=== PATIENT | male | born 1955 | race Caucasian/White ===

== ENCOUNTER 2020-01-09 05:35 | Inpatient (IN) | payer MEDICARE ==
--- NOTE | 2020-01-09 06:00 | ERPHSYRPT ---
- History of Present Illness Historian: patient, EMS, [facility] records Exam Limitations: clinical condition Timing/Duration: today Activities at Onset: none Abdominal Pain Onset Location: suprapubic (Suprapubic catheter in place), other Pain Radiation: no radiation Severity of Pain-Max: none Severity of Pain-Current: none Associated Symptoms: denies symptoms Previous symptoms: no prior history <JOHNSON GARCIA - Last Filed: 01/09/20 06:58> <SOLOMON VALLE - Last Filed: 01/09/20 08:12> - History of Present Illness Time Seen by Provider: 01/09/20 05:45 Physician History: This is a 64-year-old white male resident of [facility] brought in by EMS service for urinary retention with decreased urine output from a suprapubic catheter that has been in place for several years. EMS staff was told that the patient has had very minimal output. Patient has no significant pain but was found to have a heart rate in the 110s range. He is afebrile. He had no nausea vomiting or diarrhea. He has no shortness of breath. The EMS staff notes that the urine within the bag has some purulent drainage in it. Patient is taking Eliquis (JOHNSON GARCIA) Allergies/Adverse Reactions: No Known Drug Allergies Allergy (Verified 01/09/20 06:33) Home Medications: Apixaban [Eliquis 2.5 mg Tablet] 2.5 mg PO BID 01/09/20 [History] Baclofen 10 mg [Lioresal 10 mg] 15 mg PO TID 01/09/20 [History] Carvedilol [Coreg] 12.5 mg PO BID 01/09/20 [History] Cyclobenzaprine HCl [Flexeril] 5 mg PO BID 01/09/20 [History] Famotidine 20 mg [Pepcid 20 MG] 20 mg PO BID 01/09/20 [History] Lactobacillus Acidophilus [Acidophilus TABLET] 1 tab PO BID 01/09/20 [History] Promethazine HCl 25 mg Amp [Phenergan 25 MG INJ] 25 mg IM Q6H PRN PRN 01/09/20 [History] Travel Risk - International Travel Have you traveled outside of the country in past 3 weeks: No - Coronavirus Screening Are you exhibiting any of the following symptoms?: No Close contact with a COVID-19 positive Pt in past 14-21 Days: No <JOHNSON GARCIA - Last Filed: 01/09/20 06:58> - Review of Systems Constitutional: No Symptoms Eyes: No Symptoms Ears, Nose, & Throat: No Symptoms Respiratory: No Symptoms Cardiac: Palpitations Abdominal/Gastrointestinal: No Symptoms Genitourinary Symptoms: No Symptoms Musculoskeletal: No Symptoms Skin: No Symptoms Neurological: No Symptoms Psychological: No Symptoms Endocrine: No Symptoms Hematologic/Lymphatic: No Symptoms Immunological/Allergic: No Symptoms All Other Systems: Reviewed and Negative <JOHNSON GARCIA - Last Filed: 01/09/20 06:58> - Past Medical History Pertinent Past Medical History: Yes Neurological History: Stroke ENT History: No Pertinent History Cardiac History: No Pertinent History Respiratory History: No Pertinent History Endocrine Medical History: No Pertinent History Musculoskeletal History: No Pertinent History GI Medical History: No Pertinent History History: No Pertinent History Psycho-Social History: No Pertinent History Male Reproductive Disorders: No Pertinent History - Past Surgical History Past Surgical History: Yes Neuro Surgical History: No Pertinent History Cardiac: No Pertinent History Respiratory: No Pertinent History Gastrointestinal: No Pertinent History Genitourinary: No Pertinent History Musculoskeletal: No Pertinent History Male Surgical History: No Pertinent History <JOHNSON GARCIA - Last Filed: 01/09/20 06:58> - Physical Exam General Appearance: no apparent distress, alert, anxiety Eye Exam: PERRL/EOMI Ears, Nose, Throat Exam: normal ENT inspection Neck Exam: normal inspection, non-tender, supple, full range of motion Respiratory Exam: normal breath sounds, lungs clear, airway intact, No chest tenderness, No respiratory distress Cardiovascular Exam: tachycardia Gastrointestinal/Abdomen Exam: soft, normal bowel sounds, distention (Suprapubic region), other (Suprapubic Catheter in place. Granulation tissue at catheter entrance site. 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 Original 16 Gambian suprapubic catheter was removed as sterilely as possible using sterile technique and Betadine solution. A new catheter was then inserted into the bladder without difficulty. Immediate return of mildly thick cloudy, almost purulent blood-tinged urine was noted. Clinically, the patient was experiencing relief. The catheter was irrigated out several times with saline solution until return was clear and thinner. (JOHNSON GARCIA) - Course Nursing assessment & vital signs reviewed: Yes <JOHNSON GARCIA - Last Filed: 01/09/20 06:58> Ordered Tests: Active Orders 24 hr Category Date Time Status Robles [Catheter-Marquand Robles] STAT Care 01/09/20 06:07 Active IV Insertion STAT Care 01/09/20 06:06 Active ABDOMEN AND PELVIS W/0 CONTRAS [CT] Stat Exams 01/09/20 06:41 Taken BLOOD CULTURE Stat Lab 01/09/20 06:40 Received CBC W DIFF Stat Lab 01/09/20 06:40 Completed CMP Stat Lab 01/09/20 06:40 Completed CULTURE,URINE Stat Lab 01/09/20 06:06 Ordered Lactic Acid Stat Lab 01/09/20 06:40 Completed PT INR [PROTIME WITH INR] Stat Lab 01/09/20 06:40 Completed UA W/RFX UR CULTURE Stat Lab 01/09/20 06:06 Completed Medication Summary Generic Name Dose Route Start Last Admin Trade Name Freq PRN Reason Stop Dose Admin Sodium Chloride 1,000 mls @ 100 mls/hr 01/09/20 08:00 01/09/20 07:54 Sodium Chloride 0.9% 1000 Ml IV 02/08/20 07:59 100 mls/hr .Q10H OFELIA Administration Discontinued Medications Generic Name Dose Route Start Last Admin Trade Name German PRN Reason Stop Dose Admin Sodium Chloride 1,000 mls @ 999 mls/hr 01/09/20 06:06 01/09/20 07:54 Sodium Chloride 0.9% 1000 Ml IV 01/09/20 07:06 Infused .Q1H1M STA Infusion Sodium Chloride Confirm 01/09/20 06:46 Sodium Chloride 0.9% 1000 Ml Administered 01/09/20 06:47 Dose 1,000 mls @ ud .ROUTE .STK-MED ONE Meropenem 1 g/ Sodium Chloride 100 mls @ 200 mls/hr 01/09/20 07:22 01/09/20 07:40 IV 01/09/20 07:51 200 mls/hr STAT ONE Administration Sodium Chloride Confirm 01/09/20 07:39 Sodium Chloride 100ml Mini-Bag Plus Administered 01/09/20 07:40 Dose 100 mls @ ud IV .STK-MED ONE Sodium Chloride Confirm 01/09/20 07:44 Sodium Chloride 0.9% 1000 Ml Administered 01/09/20 07:45 Dose 1,000 mls @ ud .ROUTE .STK-MED ONE Meropenem Confirm 01/09/20 07:39 Merrem 1 Gm Administered 01/09/20 07:40 Dose 1 g IV .STK-MED ONE Lab/Rad Data: Laboratory Result Diagrams 01/09/20 06:40 01/09/20 06:40 Laboratory Results 01/09/20 01/09/20 01/09/20 Range/Units 06:40 06:40 06:40 WBC (4.0-10.5) K/mm3 RBC (4.1-5.6) M/mm3 Hgb (12.5-18.0) gm/dl Hct (42-50) % MCV (78-100) fl MCH (26-32) pg MCHC (32-36) g/dl RDW (11.5-14.0) % Plt Count (150-450) K/mm3 MPV (7.5-11.0) fl Gran % (36.0-66.0) % Eos # (Auto) (0-0.5) Absolute Lymphs (auto) (1.0-4.6) Absolute Monos (auto) (0.0-1.3) Lymphocytes % (24.0-44.0) % Monocytes % (0.0-12.0) % Eosinophils % (0.00-5.0) % Basophils % (0.0-0.4) % Absolute Granulocytes (1.4-6.9) Basophils # (0-0.4) PT 17.5 H (8.83-12.87) SECONDS INR 1.54 (0.8-3.0) Sodium 130 L (137-145) mmol/L Potassium 3.9 (3.5-5.1) mmol/L Chloride 99 (98-107) mmol/L Carbon Dioxide 23 (22-30) mmol/L Anion Gap 11.4 (5-15) MEQ/L BUN 21 H (9-20) mg/dL Creatinine 1.18 (0.66-1.25) mg/dL Estimated GFR > 60.0 ML/MIN Glucose 158 H (74-106) mg/dL Lactic Acid 0.9 (0.4-2.0) Calcium 9.9 (8.4-10.2) mg/dL Total Bilirubin 1.30 (0.2-1.3) mg/dL AST 22 (17-59) U/L ALT 11 (0-50) U/L Alkaline Phosphatase 71 (38-126) U/L Serum Total Protein 6.8 (6.3-8.2) g/dL Albumin 3.8 (3.5-5.0) g/dL Urine Color (YELLOW) Urine Appearance (CLEAR) Urine pH (5-6) Ur Specific [place] (1.005-1.025) Urine Protein (Negative) Urine Ketones (NEGATIVE) Urine Blood (0-5) Reji/ul Urine Nitrite (NEGATIVE) Urine Bilirubin (NEGATIVE) Urine Urobilinogen (0-1) mg/dL Ur Leukocyte Esterase (NEGATIVE) Urine WBC (Auto) (0-5) /HPF Urine RBC (Auto) (0-2) /HPF U Epithel Cells (Auto) (FEW) /HPF Urine Bacteria (Auto) (NEGATIVE) /HPF Urine Culture Reflexed (NO) Urine Glucose (NEGATIVE) mg/dL 01/09/20 01/09/20 Range/Units 06:40 06:06 WBC 21.0 H (4.0-10.5) K/mm3 RBC 4.65 (4.1-5.6) M/mm3 Hgb 13.8 (12.5-18.0) gm/dl Hct 41.3 L (42-50) % MCV 88.8 (78-100) fl MCH 29.7 (26-32) pg MCHC 33.4 (32-36) g/dl RDW 14.5 H (11.5-14.0) % Plt Count 199 (150-450) K/mm3 MPV 9.5 (7.5-11.0) fl Gran % 91.0 H (36.0-66.0) % Eos # (Auto) 0 (0-0.5) Absolute Lymphs (auto) 0.33 L (1.0-4.6) Absolute Monos (auto) 1.51 H (0.0-1.3) Lymphocytes % 1.6 L (24.0-44.0) % Monocytes % 7.2 (0.0-12.0) % Eosinophils % 0.0 (0.00-5.0) % Basophils % 0.2 (0.0-0.4) % Absolute Granulocytes 19.07 H (1.4-6.9) Basophils # 0.05 (0-0.4) PT (8.83-12.87) SECONDS INR (0.8-3.0) Sodium (137-145) mmol/L Potassium (3.5-5.1) mmol/L Chloride (98-107) mmol/L Carbon Dioxide (22-30) mmol/L Anion Gap (5-15) MEQ/L BUN (9-20) mg/dL Creatinine (0.66-1.25) mg/dL Estimated GFR ML/MIN Glucose (74-106) mg/dL Lactic Acid (0.4-2.0) Calcium (8.4-10.2) mg/dL Total Bilirubin (0.2-1.3) mg/dL AST (17-59) U/L ALT (0-50) U/L Alkaline Phosphatase (38-126) U/L Serum Total Protein (6.3-8.2) g/dL Albumin (3.5-5.0) g/dL Urine Color RED (YELLOW) Urine Appearance TURBID (CLEAR) Urine pH 6.0 (5-6) Ur Specific [place] 1.013 (1.005-1.025) Urine Protein 100 (Negative) Urine Ketones NEGATIVE (NEGATIVE) Urine Blood LARGE (0-5) Reji/ul Urine Nitrite NEGATIVE (NEGATIVE) Urine Bilirubin NEGATIVE (NEGATIVE) Urine Urobilinogen NEGATIVE (0-1) mg/dL Ur Leukocyte Esterase SMALL (NEGATIVE) Urine WBC (Auto) >100 (0-5) /HPF Urine RBC (Auto) >101 (0-2) /HPF U Epithel Cells (Auto) FEW (FEW) /HPF Urine Bacteria (Auto) MANY (NEGATIVE) /HPF Urine Culture Reflexed ORDERED SEPARATELY (NO) Urine Glucose NEGATIVE (NEGATIVE) mg/dL <JOHNSON GARCIA - Last Filed: 01/09/20 06:58> - Progress Progress: improved Discussed with Dr.: Luciano Will see patient in: hospital (observation) Counseled pt/family regarding: lab results, diagnosis, rad results <SOLOMON VALLE - Last Filed: 01/09/20 08:12> - Progress Progress Note: 01/09/20 06:58 Patient is signed out to Dr. Valle at shift change. He was informed of the laboratory test and radiographic studies that are pending. He will make final disposition on this patient. (JOHNSON GARCIA) 01/09/20 08:10 I resumed care at shift change from Dr. Garcia with pending work-up. Patient work-up showed white count of 21, normal lactate. No acute renal failure. Is given a liter of fluid and his heart rate is currently in low 100s. Urinalysis consistent with UTI. CT abdomen pelvis showed findings consistent with cystitis. Started on IV Merrem. I have discussed with Dr. Weeks and patient is being admitted. Plan discussed with patient who understand and agrees with it. (SOLOMON VALLE) <JOHNSON GARCIA - Last Filed: 01/09/20 06:58> - Departure Departure Disposition: Observation Critical Care Time: No <SOLOMON VALLE - Last Filed: 01/09/20 08:12> - Departure Clinical Impression: Acute cystitis with hematuria Condition: Stable Referrals: DANAE BLOOM, [facility] [Primary Care Provider] -
[2020-01-09] MEDS ORDERED: Sodium Chloride 0.9% 1000 ML 1,000 ML IV STA (06:06)
[2020-01-09] MEDS ORDERED: Sodium Chloride 0.9% 1000 ML 1,000 ML ONE ×2 (06:46→07:44)
[2020-01-09 06:48] LABS: Absolute Neutrophil Ct (ANC) 19.07 (1.4-6.9); BASOPHIL % 0.2 % (0.0-0.4); Basophil (Absolute #) 0.05 (0-0.4); Eosinophil (Absolute #) 0 (0-0.5); Hematocrit 41.3 % (42-50); Hemoglobin 13.8 gm/dl (12.5-18.0); Lymphocyte (Absolute #) 0.33 (1.0-4.6); Lymphocytes % 1.6 % (24.0-44.0); Mean Cell Volume 88.8 fl (78-100); Mean Corpuscular Hemoglobin 29.7 pg (26-32); Mean Corpuscular Hgb Concent. 33.4 g/dl (32-36); Mean Platelet Volume 9.5 fl (7.5-11.0); Monocyte (Absolute #) 1.51 (0.0-1.3); Monocytes % 7.2 % (0.0-12.0); Platelet Count 199 K/mm3 (150-450); Red Blood Count 4.65 M/mm3 (4.1-5.6); Red Cell Distribution Width 14.5 % (11.5-14.0)
[2020-01-09 07:00] LABS: INR 1.54 (0.8-3.0); PROTIME 17.5 SECONDS (8.83-12.87)
[2020-01-09 07:05] LABS: ALBUMIN 3.8 g/dL (3.5-5.0); ALKALINE PHOSPHATASE 71 U/L (38-126); ANION GAP 11.4 MEQ/L (5-15); BLOOD UREA NITROGEN 21 mg/dL (9-20); CHLORIDE 99 mmol/L (98-107); Calcium 9.9 mg/dL (8.4-10.2); Carbon Dioxide 23 mmol/L (22-30); Creatinine 1 1.18 mg/dL (0.66-1.25); EST GLOMERULAR FILTRATION RATE > 60.0 ML/MIN; Glucose 158 mg/dL (74-106); Potassium 3.9 mmol/L (3.5-5.1); SGOT/AST 22 U/L (17-59); SGPT/ALT 11 U/L (0-50); SODIUM 130 mmol/L (137-145); Total Protein 6.8 g/dL (6.3-8.2)
[2020-01-09] MEDS ORDERED: Merrem 1 GM 1 G in Sodium Chloride 100ML MINI-BAG PLUS 100 ML IV ONE (07:22)
[2020-01-09 07:24] LABS: Appearance TURBID (CLEAR); Bacteria MANY /HPF (NEGATIVE); Bilirubin NEGATIVE (NEGATIVE); Blood LARGE Ery/ul (0-5); Glucose NEGATIVE (NEGATIVE); Ketones NEGATIVE (NEGATIVE); Leukocyte Esterase SMALL (NEGATIVE); Nitrite NEGATIVE (NEGATIVE); Protein,Urine Dip 100 (Negative); Specific Gravity 1.013 (1.005-1.025); Urobilinogen NEGATIVE mg/dL (0-1); WBC >100 /HPF (0-5)
[2020-01-09 07:26] LABS: RBC >101 /HPF (0-2)
[2020-01-09 07:27] LABS: Epithelial Cells FEW /HPF (FEW)
[2020-01-09] MEDS ORDERED: Sodium Chloride 100ML MINI-BAG PLUS 100 ML IV ONE (07:39)
[2020-01-09] MEDS ORDERED: Merrem 1 GM IV ONE (07:39)
[2020-01-09] MEDS ORDERED: Sodium Chloride 0.9% 1000 ML 1,000 ML IV SCH (08:00)
[2020-01-09 09:11] LABS: Slide Review 1 YES
[2020-01-09] MEDS ORDERED: TYLENOL 325 MG PO PRN (09:58)
[2020-01-09] MEDS ORDERED: MORPHINE SULFATE 2 MG INJ IV PRN (09:58)
[2020-01-09] MEDS ORDERED: Zofran 4 MG/2 ML VIAL IV PRN (09:58)
[2020-01-09] MEDS ORDERED: Pepcid 20 MG VIAL IV SCH (10:00)
[2020-01-09] MEDS ORDERED: Phenergan 25 MG INJ IM PRN (12:36)
[2020-01-09] MEDS: ELIQUIS 2.5 MG TABLET PO SCH ×3 (13:02→21:24)
[2020-01-09] MEDS: NORVASC 5 MG PO SCH (13:02)
[2020-01-09] MEDS: Cyclobenzaprine 10 MG PO SCH ×2 (13:03→21:20)
[2020-01-09] MEDS: Acidophilus TABLET PO SCH ×2 (13:04→21:23)
[2020-01-09] MEDS: COREG 12.5 MG PO SCH ×2 (13:04→21:23)
[2020-01-09] MEDS: MERREM 500MG 500 MG in Sodium Chloride 100ML MINI-BAG PLUS 100 ML IV SCH ×2 (13:09→21:20)
[2020-01-09] MEDS: LIORESAL 10 MG PO SCH ×2 (15:49→21:24)
--- NOTE | 2020-01-09 18:30 | XRAY ---
Indication: Occluded suprapubic catheter. Hematuria and pyuria. Multiple contiguous axial images obtained through the abdomen and pelvis without contrast using renal stone protocol. Comparison: None Mild respiration artifact throughout the exam. Lung bases demonstrates mild dependent atelectasis. No infiltrate or effusion. Heart is is not enlarged. Fluid in the distal esophagus esophagus presumed from gastroesophageal reflux. Right kidney demonstrates nonoccluding calculi, largest 11 mm. Suprapubic catheter in situ. Urinary bladder demonstrates moderate circumferential wall thickening with minimal stranding suggesting cystitis.. No free fluid/air. Stomach is mildly fluid distended. Noncontrasted stomach and bowel loops appear nonobstructed. Rectum demonstrates perirectal fatty infiltration, possible proctitis. Remaining liver, gallbladder, pancreas, spleen, adrenal glands, kidneys, ureters, and bladder appear unremarkable for noncontrast exam. Moderate aortoiliac calcifications without AAA. Osseous structures intact with mild osteopenia and mild degenerative changes throughout the thoracolumbar spine. Impression: 1. Nonobstructing right renal calculi. 2. Urinary bladder wall thickening with minimal stranding. Rule out cystitis. Suprapubic catheter in situ. 3. Perirectal stranding. Rule out proctitis. 4. Fluid distended distal esophagus. Rule out gastroesophageal reflux. Comment: Preliminary interpretation was made by C. No critical discrepancy.
[2020-01-09] MEDS: Sodium Chloride 0.9% 1000 ML 1,000 ML IV SCH (18:31)
[2020-01-09] MEDS: Pepcid 20 MG PO SCH (21:23)
[2020-01-09] MEDS ORDERED: NON-FORMULARY ITEM (Cyclobenzaprine Hcl [Flexeril] 5 MG) PO SCH (22:00)
[2020-01-10] MEDS: Sodium Chloride 0.9% 1000 ML 1,000 ML IV SCH ×3 (04:35→20:44)
[2020-01-10] MEDS: MERREM 500MG 500 MG in Sodium Chloride 100ML MINI-BAG PLUS 100 ML IV SCH ×3 (05:33→22:03)
[2020-01-10 06:05] LABS: Absolute Neutrophil Ct (ANC) 10.97 (1.4-6.9); BASOPHIL % 0.3 % (0.0-0.4); Basophil (Absolute #) 0.04 (0-0.4); Eosinophil % 3.6 % (0.00-5.0); Hematocrit 36.9 % (42-50); Hemoglobin 11.3 gm/dl (12.5-18.0); Lymphocyte (Absolute #) 1.37 (1.0-4.6); Lymphocytes % 9.8 % (24.0-44.0); Mean Cell Volume 98.4 fl (78-100); Mean Corpuscular Hemoglobin 30.1 pg (26-32); Mean Corpuscular Hgb Concent. 30.6 g/dl (32-36); Monocyte (Absolute #) 1.05 (0.0-1.3); Monocytes % 7.5 % (0.0-12.0); Neutrophil % 78.8 % (36.0-66.0); Platelet Count 143 K/mm3 (150-450); Red Blood Count 3.75 M/mm3 (4.1-5.6); Red Cell Distribution Width 15.1 % (11.5-14.0); White Blood Count 13.9 K/mm3 (4.0-10.5)
[2020-01-10 06:30] LABS: ALBUMIN 2.6 g/dL (3.5-5.0); ALKALINE PHOSPHATASE 50 U/L (38-126); BLOOD UREA NITROGEN 23 mg/dL (9-20); CHLORIDE 105 mmol/L (98-107); Calcium 8.6 mg/dL (8.4-10.2); Carbon Dioxide 19 mmol/L (22-30); Creatinine 1 1.03 mg/dL (0.66-1.25); EST GLOMERULAR FILTRATION RATE > 60.0 ML/MIN; Glucose 91 mg/dL (74-106); Potassium 3.3 mmol/L (3.5-5.1); SGOT/AST 18 U/L (17-59); SGPT/ALT 8 U/L (0-50); SODIUM 131 mmol/L (137-145); Total Protein 5.4 g/dL (6.3-8.2)
[2020-01-10] MEDS: ELIQUIS 2.5 MG TABLET PO SCH ×2 (10:42→21:51)
[2020-01-10] MEDS: LIORESAL 10 MG PO SCH ×3 (10:42→21:52)
[2020-01-10] MEDS: Acidophilus TABLET PO SCH ×2 (10:42→21:52)
[2020-01-10] MEDS: COREG 12.5 MG PO SCH ×2 (10:42→21:52)
[2020-01-10] MEDS: NORVASC 5 MG PO SCH (10:42)
[2020-01-10] MEDS: Cyclobenzaprine 10 MG PO SCH ×2 (10:42→21:52)
[2020-01-10] MEDS: Pepcid 20 MG PO SCH ×2 (10:42→21:51)
[2020-01-11] MEDS: Sodium Chloride 0.9% 1000 ML 1,000 ML IV SCH ×4 (03:13→17:14)
[2020-01-11] MEDS: MERREM 500MG 500 MG in Sodium Chloride 100ML MINI-BAG PLUS 100 ML IV SCH ×3 (05:28→21:53)
[2020-01-11 05:55] LABS: BASOPHIL % 0.3 % (0.0-0.4); Basophil (Absolute #) 0.03 (0-0.4); Eosinophil % 5.2 % (0.00-5.0); Eosinophil (Absolute #) 0.56 (0-0.5); Hematocrit 35.8 % (42-50); Hemoglobin 11.6 gm/dl (12.5-18.0); Lymphocyte (Absolute #) 1.07 (1.0-4.6); Lymphocytes % 9.9 % (24.0-44.0); Mean Cell Volume 91.3 fl (78-100); Mean Corpuscular Hemoglobin 29.6 pg (26-32); Mean Corpuscular Hgb Concent. 32.4 g/dl (32-36); Mean Platelet Volume 10.1 fl (7.5-11.0); Monocytes % 6.5 % (0.0-12.0); Neutrophil % 78.1 % (36.0-66.0); Platelet Count 178 K/mm3 (150-450); Red Blood Count 3.92 M/mm3 (4.1-5.6); Red Cell Distribution Width 14.7 % (11.5-14.0); White Blood Count 10.8 K/mm3 (4.0-10.5)
[2020-01-11 06:12] LABS: ALBUMIN 2.6 g/dL (3.5-5.0); ALKALINE PHOSPHATASE 51 U/L (38-126); ANION GAP 6.6 MEQ/L (5-15); BLOOD UREA NITROGEN 17 mg/dL (9-20); CHLORIDE 106 mmol/L (98-107); Carbon Dioxide 23 mmol/L (22-30); Creatinine 1 0.73 mg/dL (0.66-1.25); EST GLOMERULAR FILTRATION RATE > 60.0 ML/MIN; Glucose 85 mg/dL (74-106); Potassium 3.3 mmol/L (3.5-5.1); SGOT/AST 14 U/L (17-59); SGPT/ALT 8 U/L (0-50); SODIUM 132 mmol/L (137-145); Total Protein 5.3 g/dL (6.3-8.2)
[2020-01-11] MEDS: COREG 12.5 MG PO SCH ×2 (09:13→21:54)
[2020-01-11] MEDS: Cyclobenzaprine 10 MG PO SCH ×2 (09:13→21:54)
[2020-01-11] MEDS: LIORESAL 10 MG PO SCH ×3 (09:14→21:54)
[2020-01-11] MEDS: ELIQUIS 2.5 MG TABLET PO SCH ×2 (09:14→21:54)
[2020-01-11] MEDS: NORVASC 5 MG PO SCH (09:15)
[2020-01-11] MEDS: Acidophilus TABLET PO SCH ×2 (09:15→21:55)
[2020-01-11] MEDS: Pepcid 20 MG PO SCH ×2 (09:15→21:54)
--- NOTE | 2020-01-11 10:16 | HP ---
CHIEF COMPLAINT: Decreased urine output, infected suprapubic catheter. HISTORY OF PRESENT ILLNESS: The patient is a 64 year old white male patient resident of [facility] who was [facility] into the [facility] due to what appeared to be urinary retention. They thought that the suprapubic was clogged or at least infected. He was brought into the emergency room and found to be somewhat mildly tachycardic. He did run a bit of a fever overnight. The urine was significantly abnormal with greater than 100 white blood cells and greater than 100 red blood cells per high power field. 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 The patient is currently receiving therapy to improve his ambulation. The patient had a suprapubic catheter placed apparently for many months if not years. Dr. George sees him for this and apparently has 16 Qatari suprapubic catheter placed and replaced in the emergency room here without difficulty. HOME MEDICATIONS: Includes Eliquis 2.5 mg b.i.d., baclofen 10 mg tablets 1 tablets t.i.d., carvedilol 12.5 b.i.d., Flexeril 5 mg b.i.d., famotidine 20 mg b.i.d., lactobacillus 1 tablet b.i.d., Phenergan PRN for nausea. ALLERGIES: NKDA. PHYSICAL EXAMINATION: The patient's vital signs on admission showed temperature 98.5F, pulse 116, respiratory rate 18 and blood pressure 151/112. O2 saturation 96%. HEENT: Normocephalic, atraumatic. Pupils equal round reactive to light. Extraocular movements intact. Oropharynx is somewhat dry. NECK: Supple without lymphadenopathy, thyromegaly or JVD. CHEST: Clear to auscultation. HEART: Regular rate and rhythm. ABDOMEN: Soft. Suprapubic catheter noted to be in place. EXTREMITIES: Without cyanosis, clubbing or edema. There are flexion contractures noted in right upper extremity. NEUROLOGIC: The patient has no focal deficits noted otherwise, somewhat slurred speech but alert and oriented x3. LAB DATA AND TESTS: The patient's laboratory studies revealed a white count of 21,000. His hemoglobin 13.8, PLT 199,000. Lactic acid 0.9. His INR is 1.54. Glucose 158, BUN 21, creatinine 1.18. Sodium slightly low at 130. Electrolytes and liver enzymes were normal. The patient was initially treated with Merrem in the emergency room and by the next morning he was actually improving nicely. He did run a little bit of a fever overnight with his temperature rising to 100.8F but is now afebrile. ASSESSMENT: A patient with recent cystitis, possible pyelonephritis. Suprapubic catheter has already been changed. He is receiving IV fluids and IV Merrem. We will continue his usual home medications otherwise. I anticipate the patient will hopefully be able to be discharged back to nursing care facility within a couple of days.
[2020-01-12] MEDS: Sodium Chloride 0.9% 1000 ML 1,000 ML IV SCH (01:16)
[2020-01-12] MEDS: MERREM 500MG 500 MG in Sodium Chloride 100ML MINI-BAG PLUS 100 ML IV SCH (05:17)
[2020-01-12 05:27] LABS: Absolute Neutrophil Ct (ANC) 6.32 (1.4-6.9); BASOPHIL % 0.5 % (0.0-0.4); Basophil (Absolute #) 0.04 (0-0.4); Eosinophil % 6.1 % (0.00-5.0); Eosinophil (Absolute #) 0.54 (0-0.5); Hemoglobin 11.5 gm/dl (12.5-18.0); Lymphocyte (Absolute #) 1.33 (1.0-4.6); Mean Cell Volume 90.4 fl (78-100); Mean Corpuscular Hemoglobin 29.7 pg (26-32); Mean Corpuscular Hgb Concent. 32.9 g/dl (32-36); Monocyte (Absolute #) 0.61 (0.0-1.3); Monocytes % 6.9 % (0.0-12.0); Neutrophil % 71.5 % (36.0-66.0); Platelet Count 186 K/mm3 (150-450); Red Blood Count 3.87 M/mm3 (4.1-5.6); Red Cell Distribution Width 14.2 % (11.5-14.0); White Blood Count 8.8 K/mm3 (4.0-10.5)
[2020-01-12 05:42] LABS: ANION GAP 7.3 MEQ/L (5-15); BLOOD UREA NITROGEN 10 mg/dL (9-20); CHLORIDE 102 mmol/L (98-107); Calcium 8.1 mg/dL (8.4-10.2); Carbon Dioxide 25 mmol/L (22-30); EST GLOMERULAR FILTRATION RATE > 60.0 ML/MIN; Glucose 91 mg/dL (74-106); Potassium 3.2 mmol/L (3.5-5.1); SODIUM 131 mmol/L (137-145)
[2020-01-12 07:57] VITALS: BP 171/86; PULSE 82; O2SAT 95
[2020-01-12] MEDS: LIORESAL 10 MG PO SCH (10:25)
[2020-01-12] MEDS: Acidophilus TABLET PO SCH (10:26)
[2020-01-12] MEDS: Cyclobenzaprine 10 MG PO SCH (10:26)
[2020-01-12] MEDS: ELIQUIS 2.5 MG TABLET PO SCH (10:27)
[2020-01-12] MEDS: COREG 12.5 MG PO SCH (10:28)
[2020-01-12] MEDS: NORVASC 5 MG PO SCH (10:29)
[2020-01-12] MEDS: Pepcid 20 MG PO SCH (10:32)
--- NOTE | 2020-01-12 10:58 | DS ---
DISCHARGE DIAGNOSES: 1) INFECTED SUPRAPUBIC CATHETER. 2) URINARY TRACT INFECTION. 3) WEAKNESS. HOSPITAL COURSE: The patient is a 64 year old white male, hemiplegic, who has a suprapubic catheter in place. Apparently the catheter got quite infected and clogged up. He was brought to the emergency room where the catheter was changed. A urine culture was obtained and grew back multiple organisms with Staphylococcus Aureus, Enterococcus Faecalis, Morganella Morganii. The patient's treatment included IV Merrem which worked quite nicely after the catheter change and the antibiotics. His white count dropped from 21,000 to normal. Over the ensuing couple of days the urine cleared up nicely. The patient's metabolic panel on 01/12/2020 showed a sugar 91, BUN 10, creatinine 0.6, sodium slightly low at 131, potassium 3.2. His white count was 8,800, hemoglobin 11.5, PLT count 186,000. The sensitivities were sensitive to Levaquin for Staphylococcus Aureus and Morganella. However, the Enterococcus was only sensitive to IV medications. The patient is currently a resident of a local nursing care facility which can do IV antibiotics and skilled care so we will send him back on the current dose of Merrem for an additional four day for a total of seven days IV. [facility] He is cared for by the facility care doctor to my knowledge and he sees Dr. George for routine care. His home medications will return back to Eliquis 2.5 mg b.i.d., Baclofen 15 mg t.i.d., carvedilol 12.5 mg b.i.d., Flexeril 5 mg b.i.d., famotidine 20 mg b.i.d. and lactobacillus tablets in addition to the Merrem listed above.
== END 2020-01-12 11:08 | DRG 699 ==
LOC: ED 05:35 → MED SURG 09:22 → OBSVTOIN 16:00
PROVIDERS: ADMIT Family Medicine; ATTEND Family Medicine
DX: T83.518A Infection and inflammatory reaction due to other urinary catheter, initial encounter (principal); N39.0 Urinary tract infection, site not specified; G81.90 Hemiplegia, unspecified affecting unspecified side; R53.1 Weakness; Z79.01 Long term (current) use of anticoagulants; Z79.899 Other long term (current) drug therapy; Z86.73 Personal history of transient ischemic attack (TIA), and cerebral infarction without residual deficits
CPT/HCPCS: 36000; 36415; 51702; 74176; 80048; 80053; 81001; 83605; 85025; 85610; 87040; 87077; 87086; 87186; 93268; 96360; 96365; 99285; A9270-GY

== ENCOUNTER 2020-03-01 06:58 | Emergency (ER) | payer MEDICARE ==
--- NOTE | 2020-03-01 07:14 | ERPHSYRPT ---
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 Patient had a suprapubic catheter. He is unsure how long he has had it but it has been more than 3 weeks. Patient is frequently visited by home health. Patient states he is scheduled to have his catheter replaced today. Patient states he felt a fullness in the suprapubic region. Patient became concerned for urinary obstruction and had his sister called 911. Patient is otherwise asymptomatic. No fever. No nausea vomiting. No diarrhea. No abdominal pain. No testicular pain. No trauma. Patient states he feels otherwise and is requesting to be discharged soon as possible. Patient voices no other complaints or concerns at this time. Timing/Duration: today Severity: moderate Modifying Factors: Improves With: nothing Associated Symptoms: denies symptoms, No nausea, No vomiting, No abdominal pain, No shortness of breath, No heartburn, No diaphoresis, No cough, No chills, No chest pain, No fever, No headaches, No loss of appetite, No malaise, No syncope, No seizure, No weakness Allergies/Adverse Reactions: No Known Drug Allergies Allergy (Verified 03/01/20 07:29) Home Medications: Amlodipine Besylate 5 mg [Norvasc 5 mg] 5 mg PO DAILY 01/09/20 [History] Apixaban [Eliquis 2.5 mg Tablet] 5 mg PO BID 01/09/20 [History] Baclofen 10 mg [Lioresal 10 mg] 15 mg PO TID 01/09/20 [History] Carvedilol [Coreg] 12.5 mg PO BID 01/09/20 [History] Cyclobenzaprine HCl [Flexeril] 5 mg PO BID 01/09/20 [History] Famotidine 20 mg [Pepcid 20 MG] 20 mg PO BID 01/09/20 [History] Lactobacillus Acidophilus [Acidophilus TABLET] 1 tab PO BID 01/09/20 [History] Hx Tetanus, Diphtheria Vaccination/Date Given: Yes Hx Influenza Vaccination/Date Given: No Hx Pneumococcal Vaccination/Date Given: No - Review of Systems Constitutional: No Symptoms, No Fever, No Chills Eyes: No Symptoms Ears, Nose, & Throat: No Symptoms Respiratory: No Symptoms, No Cough, No Dyspnea Cardiac: No Symptoms, No Chest Pain, No Edema, No Syncope Abdominal/Gastrointestinal: No Symptoms, No Abdominal Pain, No Nausea, No Vomiting, No Diarrhea Genitourinary Symptoms: No Symptoms, No Dysuria Musculoskeletal: No Symptoms, No Back Pain, No Neck Pain Skin: No Symptoms, No Rash Neurological: No Symptoms, No Dizziness, No Focal Weakness, No Sensory Changes Psychological: No Symptoms Endocrine: No Symptoms Hematologic/Lymphatic: No Symptoms Immunological/Allergic: No Symptoms All Other Systems: Reviewed and Negative - Past Medical History Pertinent Past Medical History: Yes Neurological History: Stroke ENT History: No Pertinent History Cardiac History: No Pertinent History Respiratory History: No Pertinent History Endocrine Medical History: No Pertinent History Musculoskeletal History: No Pertinent History GI Medical History: No Pertinent History History: No Pertinent History Psycho-Social History: No Pertinent History Male Reproductive Disorders: No Pertinent History Other Medical History: hx of bph. pt has suprapubic cath in place. 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 - Past Surgical History Past Surgical History: Yes Neuro Surgical History: No Pertinent History Cardiac: No Pertinent History Respiratory: No Pertinent History Gastrointestinal: No Pertinent History Genitourinary: No Pertinent History Musculoskeletal: No Pertinent History Male Surgical History: No Pertinent History Other Surgical History: suprapubic cath placement - Social History Smoking Status: Never smoker Exposure to second hand smoke: No Drug Use: none Patient Lives Alone: No - Nursing Vital Signs Nursing Vital Signs: Initial Vital Signs Temperature 98.2 F 03/01/20 07:09 Pulse Rate 120 H 03/01/20 07:09 Respiratory Rate 20 03/01/20 07:09 Blood Pressure 188/123 03/01/20 07:09 O2 Sat by Pulse Oximetry 96 03/01/20 07:09 Pain Scale Pain Intensity 10 - Physical Exam General Appearance: no apparent distress, alert Eye Exam: PERRL/EOMI, eyes nml inspection Ears, Nose, Throat Exam: normal ENT inspection, TMs normal, pharynx normal, moist mucous membranes Neck Exam: normal inspection, non-tender, supple, full range of motion Respiratory Exam: normal breath sounds, lungs clear, No respiratory distress Cardiovascular Exam: regular rate/rhythm, normal heart sounds, normal peripheral pulses Gastrointestinal/Abdomen Exam: soft, normal bowel sounds, No tenderness, No mass Rectal Exam: deferred Back Exam: normal inspection, normal range of motion, No CVA tenderness, No vertebral tenderness Extremity Exam: normal inspection, normal range of motion, pelvis stable Neurologic Exam: alert, oriented x 3, cooperative, normal mood/affect, nml cerebellar function, nml station & gait, sensation nml, No motor deficits Skin Exam: normal color, warm, dry, No rash Lymphatic Exam: No adenopathy SpO2 Interpretation: normal SpO2: 98 O2 Delivery: Room Air - Course Nursing assessment & vital signs reviewed: Yes Ordered Tests: Active Orders 24 hr Category Date Time Status CULTURE,URINE Stat Lab 03/01/20 07:31 Received UA W/RFX UR CULTURE Stat Lab 03/01/20 07:31 Completed Medication Summary Discontinued Medications Generic Name Dose Route Start Last Admin Trade Name Freq PRN Reason Stop Dose Admin Ciprofloxacin Confirm 03/01/20 08:18 Cipro 500 Mg Administered 03/01/20 08:19 Dose 500 mg .ROUTE .STK-MED ONE Ciprofloxacin 500 mg 03/01/20 08:20 03/01/20 08:21 Cipro 500 Mg PO 03/01/20 08:21 500 mg STAT ONE Administration Lab/Rad Data: Laboratory Results 03/01/20 Range/Units 07:31 Urine Color YELLOW (YELLOW) Urine Appearance CLOUDY (CLEAR) Urine pH 8.0 (5-6) Ur Specific [place] 1.011 (1.005-1.025) Urine Protein 100 (Negative) Urine Ketones NEGATIVE (NEGATIVE) Urine Blood LARGE (0-5) Reji/ul Urine Nitrite NEGATIVE (NEGATIVE) Urine Bilirubin NEGATIVE (NEGATIVE) Urine Urobilinogen NEGATIVE (0-1) mg/dL Ur Leukocyte Esterase LARGE (NEGATIVE) Urine WBC (Auto) >100 (0-5) /HPF Urine RBC (Auto) >101 (0-2) /HPF U Epithel Cells (Auto) NONE (FEW) /HPF Urine Bacteria (Auto) FEW (NEGATIVE) /HPF Urine Mucus (Auto) MANY (NEGATIVE) /HPF Urine Culture Reflexed YES (NO) Urine Glucose NEGATIVE (NEGATIVE) mg/dL - Progress Progress: improved Progress Note: 03/01/20 08:23 Patient reassessed. He feels well. Nurse flushed Robles catheter and sediment drained out along with urine. UA reveals urinary tract infection. Patient received a dose of oral Cipro Floxin in our ED. A prescription for the same was transmitted to the patient's pharmacy. Patient is currently asymptomatic. He feels well. Patient states is ready for discharge. No indication for further work-up at this time. Will discharge home. Counseled pt/family regarding: lab results, diagnosis, need for follow-up - Departure Departure Disposition: Home Clinical Impression: UTI (urinary tract infection), Urinary retention Condition: Stable Critical Care Time: No Referrals: DANAE BLOOM, COMMUNITY DEVELOPMENT WORKER [Primary Care Provider] - Additional Instructions: Discharge/Care Plan BLAIR FLOOD JR was seen on 03/01/20 in the Emergency Room. The patient was counseled regarding Diagnosis,Lab results, Imaging studies, need for follow up and when to return to the Emergency Room. Prescriptions given: Discharge Note I have spoken with the patient and/or caregivers. I have explained the patient's condition, diagnosis and treatment plan based on the information available to me at this time. I have answered the patient's and/or caregiver's questions and addressed any concerns. The patient and/or caregivers have as good understanding of the patient's diagnosis, condition and treatment plan as can be expected at this point. The vital signs have been stable. The patient's condition is stable and appropriate for discharge from the emergency department. The patient will pursue further outpatient evaluation with the primary care physician or other designated or consulting physician as outlined in the discharge instructions. The patient and/or caregivers are agreeable to this plan of care and follow-up instructions have been explained in detail. The patient and/or caregivers have received these instruction. The patient/and or caregivers are aware that any significant change in condition or worsening of symptoms should prompt an immediate return to this or the closest emergency department or call 911. Prescriptions: Ciprofloxacin [Cipro 500 MG] 500 mg PO BID 10 Days #20 tablet
[2020-03-01 07:44] LABS: Appearance CLOUDY (CLEAR); Bacteria FEW /HPF (NEGATIVE); Bilirubin NEGATIVE (NEGATIVE); Blood LARGE Ery/ul (0-5); Glucose NEGATIVE (NEGATIVE); Ketones NEGATIVE (NEGATIVE); Leukocyte Esterase LARGE (NEGATIVE); Nitrite NEGATIVE (NEGATIVE); Protein,Urine Dip 100 (Negative); Specific Gravity 1.011 (1.005-1.025); Urobilinogen NEGATIVE mg/dL (0-1); WBC >100 /HPF (0-5)
[2020-03-01 07:46] LABS: Mucus MANY /HPF (NEGATIVE); RBC >101 /HPF (0-2)
[2020-03-01] MEDS ORDERED: Cipro 500 MG ONE (08:18)
[2020-03-01] MEDS ORDERED: Cipro 500 MG PO ONE (08:20)
[2020-03-01 08:42] VITALS: O2SAT 96
[2020-03-01 12:44] VITALS: BP 164/90; PULSE 94
== END 2020-03-01 15:04 | disposition home or self-care (01) ==
LOC: ED 06:58
DX: N39.0 Urinary tract infection, site not specified (principal); R33.9 Retention of urine, unspecified
CPT/HCPCS: 51705; 81001; 87077; 87086; 87186; 99284; A9270-GY

== ENCOUNTER 2020-12-14 02:48 | Emergency (ER) | payer MEDICARE ==
[2020-12-14] MEDS ORDERED: Cipro 500 MG PO STA (03:06)
--- NOTE | 2020-12-14 03:07 | ERPHSYRPT ---
- History of Present Illness Time Seen by Provider: 12/14/20 02:58 Source: patient Exam Limitations: no limitations Physician History: 65 years old male brought in ER by EMS with history of stroke with right-sided weakness, indwelling suprapubic catheter presented in the ER with cloudy urine output and some suprapubic discomfort for the last few days along with some blockage in the catheter since evening. Patient reports some bloating sensation in the lower abdomen without any fever or chills. Patient brought his catheter and wants to be changed. He does it every 3 months. Allergies/Adverse Reactions: No Known Drug Allergies Allergy (Verified 03/01/20 07:29) Home Medications: Amlodipine Besylate 5 mg [Norvasc 5 mg] 5 mg PO DAILY 01/09/20 [History] Apixaban [Eliquis 2.5 mg Tablet] 5 mg PO BID 01/09/20 [History] Baclofen 10 mg [Lioresal 10 mg] 15 mg PO TID 01/09/20 [History] Carvedilol [Coreg] 12.5 mg PO BID 01/09/20 [History] Cyclobenzaprine HCl [Flexeril] 5 mg PO BID 01/09/20 [History] Famotidine 20 mg [Pepcid 20 MG] 20 mg PO BID 01/09/20 [History] Lactobacillus Acidophilus [Acidophilus TABLET] 1 tab PO BID 01/09/20 [History] Hx Tetanus, Diphtheria Vaccination/Date Given: Yes Hx Influenza Vaccination/Date Given: No Hx Pneumococcal Vaccination/Date Given: No - Past Medical History Pertinent Past Medical History: Yes Neurological History: Stroke ENT History: No Pertinent History Cardiac History: No Pertinent History Respiratory History: No Pertinent History Endocrine Medical History: No Pertinent History Musculoskeletal History: No Pertinent History GI Medical History: No Pertinent History History: No Pertinent History Psycho-Social History: No Pertinent History Male Reproductive Disorders: No Pertinent History Other Medical History: hx of bph. pt has suprapubic cath in place. 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 - Past Surgical History Past Surgical History: Yes Neuro Surgical History: No Pertinent History Cardiac: No Pertinent History Respiratory: No Pertinent History Gastrointestinal: No Pertinent History Genitourinary: No Pertinent History Musculoskeletal: No Pertinent History Male Surgical History: No Pertinent History Other Surgical History: suprapubic cath placement - Social History Smoking Status: Never smoker Exposure to second hand smoke: No Drug Use: none Patient Lives Alone: No - Review of Systems Constitutional: No Symptoms Respiratory: No Symptoms Cardiac: No Symptoms Abdominal/Gastrointestinal: No Symptoms Genitourinary Symptoms: Urinary Retention Musculoskeletal: Deformity Skin: No Symptoms Neurological: Paralysis Endocrine: No Symptoms Hematologic/Lymphatic: No Symptoms Immunological/Allergic: No Symptoms - Nursing Vital Signs Nursing Vital Signs: Initial Vital Signs Temperature 98.0 F 12/14/20 03:04 Pulse Rate 117 H 12/14/20 03:04 Respiratory Rate 20 12/14/20 03:04 Blood Pressure 198/125 12/14/20 03:04 O2 Sat by Pulse Oximetry 96 12/14/20 03:04 Pain Scale Pain Intensity 0 - Physical Exam General Appearance: no apparent distress, alert Eye Exam: PERRL/EOMI Ears, Nose, Throat Exam: normal ENT inspection Neck Exam: normal inspection, supple, full range of motion Respiratory Exam: normal breath sounds, lungs clear Cardiovascular Exam: regular rate/rhythm, normal heart sounds Gastrointestinal/Abdomen Exam: soft, normal bowel sounds, tenderness (Minimal suprapubic tenderness) Back Exam: normal inspection Extremity Exam: other (Right upper extremity contractures), No normal range of motion Neurologic Exam: alert, oriented x 3, cooperative Skin Exam: normal color SpO2 Interpretation: normal SpO2: 96 O2 Delivery: Room Air Ordered Tests: Medication Summary Discontinued Medications Generic Name Dose Route Start Last Admin Trade Name Freq PRN Reason Stop Dose Admin Ciprofloxacin 500 mg 12/14/20 03:06 12/14/20 03:36 Cipro 500 Mg PO 12/14/20 03:07 500 mg ONCE STA Administration Ciprofloxacin Confirm 12/14/20 03:35 Cipro 500 Mg Administered 12/14/20 03:36 Dose 500 mg .ROUTE .SaySwap-MED ONE Lab/Rad Data: Laboratory Results 12/14/20 Range/Units 03:39 Urine Color YELLOW (YELLOW) Urine Appearance CLOUDY (CLEAR) Urine pH 6.0 (5-6) Ur Specific [place] 1.010 (1.005-1.025) Urine Protein 100 (Negative) Urine Ketones NEGATIVE (NEGATIVE) Urine Blood MODERATE (0-5) Reji/ul Urine Nitrite NEGATIVE (NEGATIVE) Urine Bilirubin NEGATIVE (NEGATIVE) Urine Urobilinogen NEGATIVE (0-1) mg/dL Ur Leukocyte Esterase LARGE (NEGATIVE) Urine WBC (Auto) >100 (0-5) /HPF Urine RBC (Auto) 26-50 (0-2) /HPF U Epithel Cells (Auto) NONE (FEW) /HPF Urine Bacteria (Auto) NONE (NEGATIVE) /HPF Urine Mucus (Auto) SLIGHT (NEGATIVE) /HPF Urine Culture Reflexed ORDERED SEPARATELY (NO) Urine Glucose NEGATIVE (NEGATIVE) mg/dL - Progress Progress: improved Progress Note: 12/14/20 catheter is replaced. Does have UTI and given a dose of Rocephin. We will continue with Keflex to go home. Outpatient follow-up recommended Counseled pt/family regarding: lab results, diagnosis, need for follow-up - Departure Departure Disposition: Home Clinical Impression: UTI (urinary tract infection) Qualifiers: Urinary tract infection type: acute cystitis Hematuria presence: with hematuria Qualified Code(s): N30.01 - Acute cystitis with hematuria Condition: Stable Critical Care Time: No Referrals: DANAE BLOOM DIESEL LOCOMOTIVE ENGINEER [Primary Care Provider] - Follow Up with PCP/3 days Instructions: Urinary Retention (DC) Additional Instructions: Follow-up with your primary care for reevaluation. Return to ER if again has blockage are inadequate drainage of urinary catheter are developed lower abdominal pain. Prescriptions: Ciprofloxacin [Cipro 500 MG] 500 mg PO BID #14 tablet
[2020-12-14] MEDS ORDERED: Cipro 500 MG ONE (03:35)
[2020-12-14 03:56] LABS: Appearance CLOUDY (CLEAR); Bilirubin NEGATIVE (NEGATIVE); Blood MODERATE Ery/ul (0-5); Glucose NEGATIVE (NEGATIVE); Ketones NEGATIVE (NEGATIVE); Leukocyte Esterase LARGE (NEGATIVE); Mucus SLIGHT /HPF (NEGATIVE); Nitrite NEGATIVE (NEGATIVE); Protein,Urine Dip 100 (Negative); RBC 26-50 /HPF (0-2); Urobilinogen NEGATIVE mg/dL (0-1); WBC >100 /HPF (0-5)
[2020-12-14 06:16] VITALS: O2SAT 96
[2020-12-14 07:14] VITALS: PULSE 85
[2020-12-14 08:47] VITALS: BP 165/86
== END 2020-12-14 09:25 | disposition home or self-care (01) ==
LOC: ED 02:48
DX: N30.01 Acute cystitis with hematuria (principal); Z79.899 Other long term (current) drug therapy
CPT/HCPCS: 81001; 87077; 87086; 87186; 99284; A9270-GY

== ENCOUNTER 2021-09-18 20:44 | Emergency (ER) | payer MEDICARE ==
--- NOTE | 2021-09-18 21:01 | ERPHSYRPT ---
- History of Present Illness Time Seen by Provider: 09/18/21 20:45 Source: patient Exam Limitations: no limitations Physician History: This is a 66-year-old white male who has a suprapubic catheter in place. He has been in place for approximately a year. Today, the catheter slipped out of the ostomy site. Patient was brought in by the ambulance service. Patient's tube was in his diaper and it looked as though the balloon was popped and therefore the 14 [place] suprapubic catheter became dislodged. Patient has no specific complaints Timing/Duration: today Activites at Onset: none Severity of Pain-Max: none Severity of Pain-Current: none Associated Symptoms: denies symptoms Prior abdominal problems: none Sexual intercourse history: non-contributory Allergies/Adverse Reactions: No Known Drug Allergies Allergy (Verified 03/01/20 07:29) Home Medications: Amlodipine Besylate 5 mg [Norvasc 5 mg] 5 mg PO DAILY 01/09/20 [History] Apixaban [Eliquis 2.5 mg Tablet] 5 mg PO BID 01/09/20 [History] Baclofen 10 mg [Lioresal 10 mg] 15 mg PO TID 01/09/20 [History] Cyclobenzaprine HCl [Flexeril] 5 mg PO BID 01/09/20 [History] Famotidine 20 mg [Pepcid 20 MG] 20 mg PO BID 01/09/20 [History] Lactobacillus Acidophilus [Acidophilus TABLET] 1 tab PO BID 01/09/20 [History] carvediloL [Coreg] 12.5 mg PO BID 01/09/20 [History] Hx Tetanus, Diphtheria Vaccination/Date Given: Yes Hx Influenza Vaccination/Date Given: No Hx Pneumococcal Vaccination/Date Given: No Travel Risk - International Travel Have you traveled outside of the country in past 3 weeks: No - Coronavirus Screening Are you exhibiting any of the following symptoms?: No Close contact with a COVID-19 positive Pt in past 14-21 Days: No - Vaccine Status Have you recieved a Covid-19 vaccination: Yes 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 pt has suprapubic cath in place. 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 - Past Surgical History Past Surgical History: Yes Neuro Surgical History: No Pertinent History Cardiac: No Pertinent History Respiratory: No Pertinent History Gastrointestinal: No Pertinent History Genitourinary: No Pertinent History Musculoskeletal: No Pertinent History Male Surgical History: No Pertinent History Other Surgical History: suprapubic cath placement - Social History Smoking Status: Never smoker Exposure to second hand smoke: No Drug Use: none Patient Lives Alone: No - Review of Systems Constitutional: No Symptoms Eyes: No Symptoms Ears, Nose, & Throat: No Symptoms Respiratory: No Symptoms Cardiac: No Symptoms Abdominal/Gastrointestinal: No Symptoms, Other (Suprapubic catheter dislodged with ostomy site at the suprapubic region) Genitourinary Symptoms: No Symptoms Musculoskeletal: No Symptoms Skin: No Symptoms Neurological: No Symptoms Psychological: No Symptoms Endocrine: No Symptoms Hematologic/Lymphatic: No Symptoms Immunological/Allergic: No Symptoms All Other Systems: Reviewed and Negative - Physical Exam General Appearance: no apparent distress, alert, anxiety Eye Exam: PERRL/EOMI, eyes nml inspection Ears, Nose, Throat Exam: normal ENT inspection, moist mucous membranes Neck Exam: normal inspection, non-tender, supple, full range of motion Respiratory Exam: airway intact, No chest tenderness, No respiratory distress Gastrointestinal/Abdomen Exam: normal bowel sounds, other (Ostomy), No tenderness Rectal Exam: not done Back Exam: CVA tenderness Neurologic Exam: alert, oriented x 3, cooperative Skin Exam: normal color, warm, dry Lymphatic Exam: No adenopathy SpO2 Interpretation: normal O2 Delivery: Room Air Procedures - Additional Procedures Progress: Procedure time out at 2049: The suprapubic ostomy site was cleaned and dried. Small amount of lubricant was placed on the distal end of the 14 [place] suprapubic catheter. With even pressure, the catheter was placed into the urinary bladder without difficulty. The patient tolerated the procedure well. 10 mL of normal saline solution was used to inflate the balloon. There was excellent urine flow from the suprapubic catheter that was placed. There were no complications. - Progress Progress: improved Counseled pt/family regarding: diagnosis, need for follow-up - Departure Departure Disposition: Home Clinical Impression: Encounter for suprapubic catheter care Condition: Stable Critical Care Time: No Referrals: DANAE BLOOM FIBERGLASSER [Primary Care Provider] - Follow up/PCP as directed Additional Instructions: Continue suprapubic catheter care as before.
[2021-09-18 21:54] LABS: Appearance CLOUDY (CLEAR); Bilirubin SMALL (NEGATIVE); Dipstick done @ ? MAIN LAB; Glucose NEGATIVE (NEGATIVE); Ketones TRACE (NEGATIVE); Nitrite POSITIVE (NEGATIVE); Protein,Urine Dip >=300 (Negative); RBC LARGE Ery/ul (0-5); Specific Gravity 1.025 (1.005-1.025); Urobilinogen 4 mg/dL (0-1)
[2021-09-18 21:56] LABS: Bacteria RARE /HPF (NEGATIVE); WBC >100 /HPF (0-5)
[2021-09-18 21:57] LABS: RBC >101 /HPF (0-2); Urine Cultured Indicated? YES
[2021-09-18] MEDS ORDERED: KEFLEX 500 MG PO ONE (21:57)
[2021-09-18] MEDS ORDERED: KEFLEX 500 MG ONE (22:17)
[2021-09-19 00:02] VITALS: BP 133/80; PULSE 79; O2SAT 97
== END 2021-09-19 00:10 | disposition home or self-care (01) ==
LOC: ED 20:44
DX: Z43.6 Encounter for attention to other artificial openings of urinary tract (principal); Z79.01 Long term (current) use of anticoagulants; Z79.899 Other long term (current) drug therapy
CPT/HCPCS: 51705; 81015; 87077; 87086; 87186; 99283; A9270-GY

== ENCOUNTER 2022-02-18 15:27 | Emergency (ER) | payer MEDICARE ==
--- NOTE | 2022-02-18 15:42 | ERPHSYRPT ---
- History of Present Illness Time Seen by Provider: 02/18/22 15:38 Source: patient, EMS Physician History: Patient is 66-year-old male with history of chronic suprapubic catheter was at home on computer and suddenly he passed felt a pop in his suprapubic catheter almost came out so he called ambulance and patient was brought into the emergency room. Except for this patient denies any other symptoms. Timing/Duration: today Associated Symptoms: denies symptoms Allergies/Adverse Reactions: No Known Drug Allergies Allergy (Verified 09/18/21 21:13) Home Medications: Amlodipine Besylate 5 mg [Norvasc 5 mg] 5 mg PO DAILY 01/09/20 [History] Apixaban [Eliquis 2.5 mg Tablet] 5 mg PO BID 01/09/20 [History] Baclofen 10 mg [Lioresal 10 mg] 15 mg PO TID 01/09/20 [History] Cyclobenzaprine HCl [Flexeril] 5 mg PO BID 01/09/20 [History] Famotidine 20 mg [Pepcid 20 MG] 20 mg PO BID 01/09/20 [History] Lactobacillus Acidophilus [Acidophilus TABLET] 1 tab PO BID 01/09/20 [History] carvediloL [Coreg] 12.5 mg PO BID 01/09/20 [History] Hx Tetanus, Diphtheria Vaccination/Date Given: Yes Hx Influenza Vaccination/Date Given: No Hx Pneumococcal Vaccination/Date Given: No Travel Risk - Vaccine Status Have you recieved a Covid-19 vaccination: Yes 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[employer] - Vaccination Dates Date of 2cond Vaccination (if applicable): 08/16/20 - Review of Systems Constitutional: No Symptoms Eyes: No Symptoms Ears, Nose, & Throat: No Symptoms Respiratory: No Symptoms Cardiac: No Symptoms Abdominal/Gastrointestinal: No Symptoms Genitourinary Symptoms: Other (suprapubic cathetor came out) - Past Medical History Pertinent Past Medical History: Yes Neurological History: Stroke ENT History: No Pertinent History Cardiac History: No Pertinent History Respiratory History: No Pertinent History Endocrine Medical History: No Pertinent History Musculoskeletal History: No Pertinent History GI Medical History: No Pertinent History History: No Pertinent History Psycho-Social History: No Pertinent History Male Reproductive Disorders: No Pertinent History Other Medical History: hx of bph. pt has suprapubic cath in place. 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 - Past Surgical History Past Surgical History: Yes Neuro Surgical History: No Pertinent History Cardiac: No Pertinent History Respiratory: No Pertinent History Gastrointestinal: No Pertinent History Genitourinary: No Pertinent History Musculoskeletal: No Pertinent History Male Surgical History: No Pertinent History Other Surgical History: suprapubic cath placement - Social History Smoking Status: Never smoker Exposure to second hand smoke: No Drug Use: none Patient Lives Alone: No - Physical Exam General Appearance: no apparent distress Eye Exam: PERRL/EOMI Ears, Nose, Throat Exam: normal ENT inspection Neck Exam: normal inspection Respiratory Exam: normal breath sounds Cardiovascular Exam: regular rate/rhythm Gastrointestinal/Abdomen Exam: soft Male Genitalia Exam: normal genitalia Back Exam: normal inspection Extremity Exam: normal inspection - Course Nursing assessment & vital signs reviewed: Yes - Progress Progress: improved Progress Note: 02/18/22 15:40 Patient suprapubic catheter was replaced with new Robles catheter without any complication. Counseled pt/family regarding: diagnosis, need for follow-up - Departure Departure Disposition: Home Clinical Impression: Encounter for suprapubic catheter care Condition: Stable Critical Care Time: No Referrals: DANAE BLOOM, HOSPICE CARE CONSULTANT [Primary Care Provider] - Follow up/PCP as directed Instructions: How to Care for Your Suprapubic Urinary Catheter Additional Instructions: REMIGIO MARSHALLBLAIR LOPEZ was seen on 02/18/22 n the Emergency Room. At that time you were treated for an emergent condition, during your visit Laboratory, Radiology and/or other procedures may have been ordered. It is very important that you follow-up with your Primary Care Physician DANAE BLOOM within the next 24-48 hours to review your Emergency Room visit and the final results of testing that was ordered. Some test results such as Urine Cultures, Blood Cultu res, and other cultures if ordered will not be finalized for 24-48 hours. If you do not have a Primary Care Provider please call the medical records department at [phone] ext [phone] to obtain a copy of your results or you may sign into our patient portal to obtain these results by visiting us @ [email or web address] and completing the following steps: 1. Click on the Patient Portal link 2. Click the Patient Self Enrollment Link to complete the enrollment form and entering your 3. Once the enrollment form is completed you will receive an email with a temp orary ID and password at the email address you provided. 4. Next choose a user name and password. Your user name must be at least 4 characters long and your password must be at least 4 characters long. 5. Choose a security question from the list and provide your answer to the question. If you already have signed into the Health Portal you may access your Health Care Information 05/11 by the following steps: 1. Login to our website @ [email or web address] 2. Enter your original user name and password. FAQS The [facility] Health Portal is an online tool that contains your Lab Results, Radiology Reports, Visit History, Discharge Instructions and Health Summary Lab and Radiology Results will not be available for 72 hours on the portal. The Portal is a secure site, passwords are encryted and URLs are re-written so they cannot be copied and pasted. You and authorized family members are the only ones who can access your Portal. Also there is a timeout feature that protects your information if you leave the Portal page open. If you have technical difficulty please use the Contact Us link on the page this will allow you to submit any questions you have regarding the Portal or you may contact the Medical Record Department at [phone] ext [phone].
[2022-02-18 17:03] VITALS: BP 165/72; PULSE 78; O2SAT 98
== END 2022-02-18 17:03 | disposition home or self-care (01) ==
LOC: ED 15:27
DX: T83.028A Displacement of other urinary catheter, initial encounter (principal); Z79.01 Long term (current) use of anticoagulants; Z79.899 Other long term (current) drug therapy
CPT/HCPCS: 99281

== ENCOUNTER 2022-03-02 11:46 | Observation (INO) | payer MEDICARE ==
--- NOTE | 2022-03-02 12:04 | XRAY ---
Indication: Slurred speech. Stroke. Multiple contiguous axial images obtained through the head without contrast. Comparison: None Age-appropriate global atrophy, mild periventricular degenerative micro-ischemia bilaterally, and old lacunar infarcts left basal ganglia. Left mid periventricular white matter also demonstrates 1.4 x 1.0 x 2.2 cm remote infarct. No acute intracranial hemorrhage, abnormal extra-axial fluid collection, or mass effect. Fourth ventricle is midline without hydrocephalus. Bony calvarium intact. Near-complete opacification both maxillary and mild mucosal thickening both ethmoid sinuses. Mastoid air cells are clear. Impression: Nonacute senile brain with small old left cerebral infarcts. Incidental paranasal sinus disease.
--- NOTE | 2022-03-02 12:14 | XRAY ---
Indication: Lethargy. Comparison: None Portable chest clear. Heart not enlarged with moderate sized hiatal hernia. Bony thorax intact with mild osteopenia and degenerative changes. Impression: Nonacute chest with chronic features.
[2022-03-02 12:28] LABS: Absolute Neutrophil Ct (ANC) 20.61 x10^3/uL (1.4-6.9); Basophil (Absolute #) 0.07 x10^3/uL (0-0.4); Eosinophil % 0.1 % (0.00-5.0); Eosinophil (Absolute #) 0.02 x10^3/uL (0-0.5); Hematocrit 43.5 % (42-50); Hemoglobin 14.8 g/dL (12.5-18.0); Lymphocyte (Absolute #) 0.73 x10^3/uL (1.0-4.6); Lymphocytes % 3.1 % (24.0-44.0); Mean Cell Volume 88.6 fL (78-100); Mean Corpuscular Hemoglobin 30.1 pg (26-32); Mean Platelet Volume 9.5 fL (7.5-11.0); Monocyte (Absolute #) 1.68 x10^3/uL (0.0-1.3); Monocytes % 7.2 % (0.0-12.0); Neutrophil % 88.6 % (36.0-66.0); Platelet Count 211 x10^3/uL (150-450); Red Blood Count 4.91 x10^6/uL (4.1-5.6); White Blood Count 23.3 x10^3/uL (4.0-10.5)
--- NOTE | 2022-03-02 12:42 | ERPHSYRPT ---
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) Patient Subjective Stated Complaint: confusion and weakness that began sometime this morning around 1000 Triage Nursing Assessment: Pt brought to the ER by his healthcare helper, hypertensive, tachycardic, denies pain, having a hard time getting his words out, left eye more shut than the right and the pt and the healthcare worker s garcia that is not normal, pt unable to move from wheelchair to the bed without 2 people assistance, pt is unable to move his right leg which is more prominent today than normal, pt was at [facility] yesterday to have his pelaez replaced, pulses normal, skin n/w/d, hx of stroke with right sided deficit Physician History: 66 yo WM w h/o chronic R hemiparesis due to a CVA presents w confusion since approximately 6:30 AM. He has a supra-pubic catheter which was changed in the [facility] ER yesterday. Pt is alert and oriented x3 wo new focal weakness upon presentation. He denies fever/cough/chest pain/abdominal pain/N/V/D. Timing/Duration: today Severity: mild Modifying Factors: Improves With: nothing Associated Symptoms: denies symptoms Allergies/Adverse Reactions: No Known Drug Allergies Allergy (Verified 03/02/22 12:18) Home Medications: Amlodipine Besylate 5 mg [Norvasc 5 mg] 5 mg PO DAILY 01/09/20 [History] Apixaban [Eliquis 2.5 mg Tablet] 5 mg PO BID 01/09/20 [History] Famotidine 20 mg [Pepcid 20 MG] 20 mg PO BID 01/09/20 [History] carvediloL [Coreg] 12.5 mg PO BID 01/09/20 [History] Baclofen 10 mg [Lioresal 10 mg] 10 mg PO Q8H PRN 03/02/22 [History] Ergocalciferol (Vitamin D2) [Vitamin D2] 1 cap PO WEEKLY 03/02/22 [History] Hydrochlorothiazide 25 mg [hydroDIURIL 25 MG] 25 mg PO DAILY 03/02/22 [History] Potassium Chloride 10 meq PO DAILY 03/02/22 [History] Hx Tetanus, Diphtheria Vaccination/Date Given: Yes Hx Influenza Vaccination/Date Given: No Hx Pneumococcal Vaccination/Date Given: No Travel Risk - International Travel Have you traveled outside of the country in past 3 weeks: No - Coronavirus Screening Are you exhibiting any of the following symptoms?: No Close contact with a COVID-19 positive Pt in past 14-21 Days: No - Vaccine Status Have you recieved a Covid-19 vaccination: Yes 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: [employer] - Vaccination Dates Date of 2cond Vaccination (if applicable): 08/16/20 - Review of Systems Constitutional: No Symptoms, Lethargy Eyes: No Symptoms Ears, Nose, & Throat: No Symptoms Respiratory: No Symptoms Cardiac: No Symptoms Abdominal/Gastrointestinal: No Symptoms Genitourinary Symptoms: No Symptoms Musculoskeletal: No Symptoms Skin: No Symptoms Neurological: No Symptoms Psychological: No Symptoms Endocrine: No Symptoms Hematologic/Lymphatic: No Symptoms Immunological/Allergic: No Symptoms - Past Medical History Pertinent Past Medical History: Yes Neurological History: Stroke ENT History: No Pertinent History Cardiac History: No Pertinent History Respiratory History: No Pertinent History Endocrine Medical History: No Pertinent History Musculoskeletal History: No Pertinent History GI Medical History: No Pertinent History History: No Pertinent History Psycho-Social History: No Pertinent History Male Reproductive Disorders: No Pertinent History Other Medical History: hx of bph. pt has suprapubic cath in place. 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 - Past Surgical History Past Surgical History: Yes Neuro Surgical History: No Pertinent History Cardiac: No Pertinent History Respiratory: No Pertinent History Gastrointestinal: No Pertinent History Genitourinary: No Pertinent History Musculoskeletal: No Pertinent History Male Surgical History: No Pertinent History Other Surgical History: suprapubic cath placement - Social History Smoking Status: Never smoker Exposure to second hand smoke: No Drug Use: none Patient Lives Alone: Yes - Nursing Vital Signs Nursing Vital Signs: Initial Vital Signs Temperature 98.9 F 03/02/22 12:01 Pulse Rate 108 H 03/02/22 12:01 Blood Pressure 147/78 03/02/22 12:01 O2 Sat by Pulse Oximetry 98 03/02/22 12:01 Pain Scale Pain Intensity 0 Hypertensive/Tachy - Physical Exam General Appearance: no apparent distress Eye Exam: PERRL/EOMI, eyes nml inspection Ears, Nose, Throat Exam: normal ENT inspection, TMs normal, pharynx normal, moist mucous membranes Neck Exam: normal inspection, non-tender, supple, full range of motion, No m eningismus, No mass, No Brudzinski, No Kernig's, No carotid bruit Respiratory Exam: normal breath sounds, lungs clear, airway intact, No respiratory distress Cardiovascular Exam: regular rate/rhythm, normal heart sounds, normal peripheral pulses, capillary refill <2 sec, No murmur Gastrointestinal/Abdomen Exam: soft, normal bowel sounds, other (Supra-pubic catheter) Back Exam: normal inspection, normal range of motion, CVA tenderness Extremity Exam: normal inspection Neurologic Exam: alert, oriented x 3, cooperative, [employer]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, n ormal mood/affect, sensation nml, motor deficits (Chronic R hemiparesis) Skin Exam: normal color, warm, dry, No rash Lymphatic Exam: No adenopathy SpO2 Interpretation: normal SpO2: 98 O2 Delivery: Room Air - Course Nursing assessment & vital signs reviewed: Yes EKG Interpreted by Me: RATE (NSR/Rate96/Normal QT-QTc/Nonspecific Twave abnormality) - Radiology Exams Chest X-ray Interpretation: Discussed w/ radiologist (CXR neg per Rad) - CT Exams Head CT Interpretation: Discussed w/radiologist (Sinusitis/old small L cerebral infarcts) Ordered Tests: Active Orders 24 hr Category Date Time Status EKG-ER Only STAT Care 03/02/22 11:58 Completed Heart-Healthy Diet Diet 03/02/22 Dinner Active CHEST 1 VIEW (PORTABLE) Stat Exams 03/02/22 11:56 Completed HEAD WITHOUT CONTRAST [CT] Stat Exams 03/02/22 11:52 Completed BLOOD CULTURE Stat Lab 03/02/22 14:45 Received CBC W DIFF AM.LAB Lab 03/03/22 04:00 Ordered CBC W DIFF Stat Lab 03/02/22 12:27 Completed CMP AM.LAB Lab 03/03/22 04:00 Ordered CMP Stat Lab 03/02/22 12:27 Completed CULTURE,URINE Stat Lab 03/02/22 Received Lactic Acid Stat Lab 03/02/22 12:27 Completed NT PRO BNP Stat Lab 03/02/22 12:27 Completed PROTIME WITH INR Stat Lab 03/02/22 12:27 Completed PTT Stat Lab 03/02/22 12:27 Completed TROPONIN Q4H Lab 03/02/22 12:27 Completed TROPONIN Q4H Lab 03/02/22 16:08 Completed TROPONIN Q4H Lab 03/02/22 20:00 Ordered UA W/RFX CULTURE Stat Lab 03/02/22 Completed Urine Triage Profile Stat Lab 03/02/22 14:03 Completed Transfer Order Routine Transfer 03/02/22 Completed Medication Summary Generic Name Dose Route Start Last Admin Trade Name Freq PRN Reason Stop Dose Admin Amlodipine Besylate 5 mg 03/03/22 10:00 Amlodipine Besylate 5 Mg Tablet PO 04/02/22 09:59 DAILY OFELIA Apixaban 5 mg 03/02/22 22:00 Apixaban 2.5 Mg Tablet PO 04/01/22 21:59 BID OFELIA Baclofen 10 mg 03/02/22 17:26 03/02/22 17:52 Baclofen 10 Mg Tablet PO 04/01/22 17:25 10 mg Q8H PRN PRN Administration muscle relax Carvedilol 12.5 mg 03/02/22 22:00 Carvedilol 12.5 Mg Tablet PO 04/01/22 21:59 BID [facility] Cyclobenzaprine HCl 10 mg 03/02/22 22:00 Cyclobenzaprine Hcl 10 Mg Tablet PO 04/01/22 21:59 HS OFELIA Ergocalciferol 50,000 unit 03/05/22 10:00 Ergocalciferol (Vitamin D2) 50,000 Unit Capsule PO 04/04/22 09:59 Q7D OFELIA Famotidine 20 mg 03/02/22 22:00 Famotidine 20 Mg Tablet PO 04/01/22 21:59 BID OFELIA Hydrochlorothiazide 25 mg 03/03/22 10:00 Hydrochlorothiazide 25 Mg Tablet PO 04/02/22 09:59 DAILY OFELIA Sodium Chloride 1,000 mls @ 100 mls/hr 03/02/22 14:30 03/02/22 19:37 Sodium Chloride 0.9% 1000 Ml IV 04/01/22 14:29 100 mls/hr .Q10H OEFLIA Administration Ceftriaxone Sodium/Dextrose 1 g in 50 mls @ 100 mls/hr 03/03/22 10:00 Rocephin 1 Gm-D5w 50 Ml Bag IV 03/06/22 09:59 Q24H10 OFELIA Ondansetron HCl 4 mg 03/02/22 14:26 Ondansetron Hcl 4 Mg/2 Ml Vial IV 04/01/22 14:25 Q6H PRN PRN NAUSEA/VOMITING Pantoprazole Sodium 40 mg 03/02/22 17:00 03/02/22 17:23 Pantoprazole 40 Mg Vial IV 04/01/22 16:59 40 mg Q24H10 OFELIA Administration Potassium Chloride 10 meq 03/03/22 10:00 Potassium Chloride Tab 10 Meq Tab PO 04/02/22 09:59 DAILY OFELIA Discontinued Medications Generic Name Dose Route Start Last Admin Trade Name Freq PRN Reason Stop Dose Admin Ceftriaxone Sodium/Dextrose 1 g in 50 mls @ 100 mls/hr 03/02/22 14:23 03/02/22 15:38 Rocephin 1 Gm-D5w 50 Ml Bag IV 03/02/22 14:52 Infused STAT STA Infusion Sodium Chloride 1,000 mls @ 999 mls/hr 03/02/22 14:24 03/02/22 15:39 Sodium Chloride 0.9% 1000 Ml IV 03/02/22 15:24 Infused .Q1H1M STA Infusion Ceftriaxone Sodium/Dextrose Confirm 03/02/22 14:30 Rocephin 1 Gm-D5w 50 Ml Bag Administered 03/02/22 14:31 Dose 1 g in 50 mls @ ud IV .[facility] Lab/Rad Data: Laboratory Result Diagrams 03/02/22 12:27 03/02/22 12:27 Laboratory Results 03/02/22 03/02/22 03/02/22 Range/Units 14:45 14:03 12:27 WBC (4.0-10.5) x10^3/uL RBC (4.1-5.6) x10^6/uL Hgb (12.5-18.0) g/dL Hct (42-50) % MCV (78-100) fL MCH (26-32) pg MCHC (32-36) g/dL RDW (11.5-14.0) % Plt Count (150-450) x10^3/uL MPV (7.5-11.0) fL Gran % (36.0-66.0) % Immature Gran % (Auto) (0.00-0.4) % Nucleat RBC Rel Count (0.00-0.1) % Eos # (Auto) (0-0.5) x10^3/uL Immature Gran # (Auto) (0.00-0.03) x10^3u/L Absolute Lymphs (auto) (1.0-4.6) x10^3/uL Absolute Monos (auto) (0.0-1.3) x10^3/uL Absolute Nucleated RBC (0.00-0.01) x10^3u/L Lymphocytes % (24.0-44.0) % Monocytes % (0.0-12.0) % Eosinophils % (0.00-5.0) % Basophils % (0.0-0.4) % Absolute Granulocytes (1.4-6.9) x10^3/uL Basophils # (0-0.4) x10^3/uL PT (9.4-12.5) SECONDS INR (0.8-3.0) APTT (25.1-36.5) SECONDS Sodium (137-145) mmol/L Potassium (3.5-5.1) mmol/L Chloride (98-107) mmol/L Carbon Dioxide (22-30) mmol/L Anion Gap (5-15) MEQ/L BUN (9-20) mg/dL Creatinine (0.66-1.25) mg/dL Estimated GFR ML/MIN Glucose (74-106) mg/dL Lactic Acid 1.3 (0.4-2.0) Calcium (8.4-10.2) mg/dL Total Bilirubin (0.2-1.3) mg/dL AST (17-59) U/L ALT (0-50) U/L Alkaline Phosphatase (38-126) U/L Troponin I (0.000-0.034) ng/mL NT-Pro-B Natriuret Pep (0-900) pg/mL Serum Total Protein (6.3-8.2) g/dL Albumin (3.5-5.0) g/dL Urine Opiates Level NEGATIVE (NEGATIVE) Ur Methadone NEGATIVE (NEGATIVE) Urine Barbiturates NEGATIVE (NEGATIVE) Ur Phencyclidine (PCP) NEGATIVE (NEGATIVE) Urine Amphetamine NEGATIVE (NEGATIVE) U Benzodiazepine Level NEGATIVE (NEGATIVE) Urine Cocaine NEGATIVE (NEGATIVE) Urine Marijuana (THC) NEGATIVE (NEGATIVE) Influenza Type A Ag NEGATIVE (NEGATIVE) Influenza Type B Ag NEGATIVE (NEGATIVE) RSV (PCR) NEGATIVE (Negative) SARS-CoV-2 (PCR) NEGATIVE (NEGATIVE) Slides for Path Review 03/02/22 03/02/22 03/02/22 Range/Units 12:27 12:27 12:27 WBC (4.0-10.5) x10^3/uL RBC (4.1-5.6) x10^6/uL Hgb (12.5-18.0) g/dL Hct (42-50) % MCV (78-100) fL MCH (26-32) pg MCHC (32-36) g/dL RDW (11.5-14.0) % Plt Count (150-450) x10^3/uL MPV (7.5-11.0) fL Gran % (36.0-66.0) % Immature Gran % (Auto) (0.00-0.4) % Nucleat RBC Rel Count (0.00-0.1) % Eos # (Auto) (0-0.5) x10^3/uL Immature Gran # (Auto) (0.00-0.03) x10^3u/L Absolute Lymphs (auto) (1.0-4.6) x10^3/uL Absolute Monos (auto) (0.0-1.3) x10^3/uL Absolute Nucleated RBC (0.00-0.01) x10^3u/L Lymphocytes % (24.0-44.0) % Monocytes % (0.0-12.0) % Eosinophils % (0.00-5.0) % Basophils % (0.0-0.4) % Absolute Granulocytes (1.4-6.9) x10^3/uL Basophils # (0-0.4) x10^3/uL PT 11.6 (9.4-12.5) SECONDS INR 1.10 (0.8-3.0) APTT 26.5 (25.1-36.5) SECONDS Sodium 130 L (137-145) mmol/L Potassium 3.9 (3.5-5.1) mmol/L Chloride 97 L (98-107) mmol/L Carbon Dioxide 27 (22-30) mmol/L Anion Gap 10.0 (5-15) MEQ/L BUN 19 (9-20) mg/dL Creatinine 1.20 (0.66-1.25) mg/dL Estimated GFR > 60.0 ML/MIN Glucose 106 (74-106) mg/dL Lactic Acid (0.4-2.0) Calcium 9.4 (8.4-10.2) mg/dL Total Bilirubin 1.50 H (0.2-1.3) mg/dL AST 26 (17-59) U/L ALT 19 (0-50) U/L Alkaline Phosphatase 71 (38-126) U/L Troponin I < 0.012 (0.000-0.034) ng/mL NT-Pro-B Natriuret Pep 336 (0-900) pg/mL Serum Total Protein 6.8 (6.3-8.2) g/dL Albumin 4.0 (3.5-5.0) g/dL Urine Opiates Level (NEGATIVE) Ur Methadone (NEGATIVE) Urine Barbiturates (NEGATIVE) Ur Phencyclidine (PCP) (NEGATIVE) Urine Amphetamine (NEGATIVE) U Benzodiazepine Level (NEGATIVE) Urine Cocaine (NEGATIVE) Urine Marijuana (THC) (NEGATIVE) Influenza Type A Ag (NEGATIVE) Influenza Type B Ag (NEGATIVE) RSV (PCR) (Negative) SARS-CoV-2 (PCR) (NEGATIVE) Slides for Path Review 03/02/22 Range/Units 12:27 WBC 23.3 H (4.0-10.5) x10^3/uL RBC 4.91 (4.1-5.6) x10^6/uL Hgb 14.8 (12.5-18.0) g/dL Hct 43.5 (42-50) % MCV 88.6 (78-100) fL MCH 30.1 (26-32) pg MCHC 34.0 (32-36) g/dL RDW 14.0 (11.5-14.0) % Plt Count 211 (150-450) x10^3/uL MPV 9.5 (7.5-11.0) fL Gran % 88.6 H (36.0-66.0) % Immature Gran % (Auto) 0.7 H (0.00-0.4) % Nucleat RBC Rel Count 0.0 (0.00-0.1) % Eos # (Auto) 0.02 (0-0.5) x10^3/uL Immature Gran # (Auto) 0.16 H (0.00-0.03) x10^3u/L Absolute Lymphs (auto) 0.73 L (1.0-4.6) x10^3/uL Absolute Monos (auto) 1.68 H (0.0-1.3) x10^3/uL Absolute Nucleated RBC 0.00 (0.00-0.01) x10^3u/L Lymphocytes % 3.1 L (24.0-44.0) % Monocytes % 7.2 (0.0-12.0) % Eosinophils % 0.1 (0.00-5.0) % Basophils % 0.3 (0.0-0.4) % Absolute Granulocytes 20.61 H (1.4-6.9) x10^3/uL Basophils # 0.07 (0-0.4) x10^3/uL PT (9.4-12.5) SECONDS INR (0.8-3.0) APTT (25.1-36.5) SECONDS Sodium (137-145) mmol/L Potassium (3.5-5.1) mmol/L Chloride (98-107) mmol/L Carbon Dioxide (22-30) mmol/L Anion Gap (5-15) MEQ/L BUN (9-20) mg/dL Creatinine (0.66-1.25) mg/dL Estimated GFR ML/MIN Glucose (74-106) mg/dL Lactic Acid (0.4-2.0) Calcium (8.4-10.2) mg/dL Total Bilirubin (0.2-1.3) mg/dL AST (17-59) U/L ALT (0-50) U/L Alkaline Phosphatase (38-126) U/L Troponin I (0.000-0.034) ng/mL NT-Pro-B Natriuret Pep (0-900) pg/mL Serum Total Protein (6.3-8.2) g/dL Albumin (3.5-5.0) g/dL Urine Opiates Level (NEGATIVE) Ur Methadone (NEGATIVE) Urine Barbiturates (NEGATIVE) Ur Phencyclidine (PCP) (NEGATIVE) Urine Amphetamine (NEGATIVE) U Benzodiazepine Level (NEGATIVE) Urine Cocaine (NEGATIVE) Urine Marijuana (THC) (NEGATIVE) Influenza Type A Ag (NEGATIVE) Influenza Type B Ag (NEGATIVE) RSV (PCR) (Negative) SARS-CoV-2 (PCR) (NEGATIVE) Slides for Path Review YES - Progress Progress Note: 03/02/22 14:[address] Carter 03/02/22 14:30 Blood cultures x2 1gm IV Rocephin 1L NS bolus Counseled pt/family regarding: lab results, diagnosis, need for follow-up, rad results - Departure Departure Disposition: Observation Clinical Impression: UTI (urinary tract infection) Condition: Stable Critical Care Time: No
[2022-03-02 12:45] LABS: INR 1.1 (0.8-3.0); PROTIME 11.6 SECONDS (9.4-12.5); PTT 26.5 SECONDS (25.1-36.5)
[2022-03-02 13:02] LABS: ALKALINE PHOSPHATASE 71 U/L (38-126); BLOOD UREA NITROGEN 19 mg/dL (9-20); CHLORIDE 97 mmol/L (98-107); Calcium 9.4 mg/dL (8.4-10.2); Carbon Dioxide 27 mmol/L (22-30); EST GLOMERULAR FILTRATION RATE > 60.0 ML/MIN; Glucose 106 mg/dL (74-106); NT PRO BNP 336 pg/mL (0-900); Potassium 3.9 mmol/L (3.5-5.1); SGOT/AST 26 U/L (17-59); SGPT/ALT 19 U/L (0-50); SODIUM 130 mmol/L (137-145); Total Protein 6.8 g/dL (6.3-8.2)
[2022-03-02 13:59] LABS: Appearance SLIGHTLY CLOUDY (CLEAR); Bilirubin NEGATIVE (NEGATIVE); Dipstick done @ ? MAIN LAB; Glucose NEGATIVE (NEGATIVE); Ketones LARGE-80 (NEGATIVE); Nitrite POSITIVE (NEGATIVE); Ph 7.5 (5-6); Protein,Urine Dip 30 (Negative); RBC LARGE Ery/ul (0-5); Urobilinogen >=8.0 mg/dL (0-1)
[2022-03-02 14:01] LABS: Bacteria FEW /HPF (NEGATIVE); Mucus SLIGHT /HPF (NEGATIVE); RBC >101 /HPF (0-2); WBC 51-100 /HPF (0-5)
[2022-03-02 14:02] LABS: Urine Cultured Indicated? YES
[2022-03-02 14:15] LABS: Amphetamine,Urine NEGATIVE (NEGATIVE); Barbiturate,Urine NEGATIVE (NEGATIVE); Benzodiazepine,Urine NEGATIVE (NEGATIVE); Cocaine,Urine NEGATIVE (NEGATIVE); Methadone,Urine NEGATIVE (NEGATIVE); Opiate,Urine NEGATIVE (NEGATIVE); PCP,Urine NEGATIVE (NEGATIVE); THC,Urine NEGATIVE (NEGATIVE)
[2022-03-02] MEDS ORDERED: ROCEPHIN 1 Gm-D5w 50 ml Bag** 1 G/50 ML IVPB IV STA (14:23)
[2022-03-02] MEDS ORDERED: Sodium Chloride 0.9% 1000 ML 1,000 ML IV STA (14:24)
[2022-03-02 14:26] LABS: Slide Review 1 YES
[2022-03-02] MEDS ORDERED: Zofran 4 MG/2 ML VIAL IV PRN (14:26)
[2022-03-02] MEDS ORDERED: ROCEPHIN 1 Gm-D5w 50 ml Bag** 1 G/50 ML IVPB IV ONE (14:30)
[2022-03-02 15:31] LABS: INFLUENZA A NEGATIVE (NEGATIVE); INFLUENZA B NEGATIVE (NEGATIVE); RESPIRATORY SYNCTIAL VIRUS NEGATIVE (Negative); SARS-CoV-2 Xpert Express NEGATIVE (NEGATIVE)
[2022-03-02] MEDS: PROTONIX 40 MG IV IV SCH (17:23)
[2022-03-02] MEDS: LIORESAL 10 MG PO PRN (17:52)
[2022-03-02] MEDS: Sodium Chloride 0.9% 1000 ML 1,000 ML IV SCH (19:37)
[2022-03-02] MEDS: Pepcid 20 MG PO SCH (21:11)
[2022-03-02] MEDS: COREG 12.5 MG PO SCH (21:11)
[2022-03-02] MEDS: Cyclobenzaprine 10 MG PO SCH (21:11)
[2022-03-02] MEDS: ELIQUIS 2.5 MG TABLET PO SCH (21:11)
[2022-03-03] MEDS: LIORESAL 10 MG PO PRN ×3 (02:08→20:41)
[2022-03-03] MEDS: Sodium Chloride 0.9% 1000 ML 1,000 ML IV SCH ×2 (05:19→15:28)
[2022-03-03 05:57] LABS: Absolute Neutrophil Ct (ANC) 14.81 x10^3/uL (1.4-6.9); Basophil (Absolute #) 0.07 x10^3/uL (0-0.4); Eosinophil % 0.2 % (0.00-5.0); Eosinophil (Absolute #) 0.04 x10^3/uL (0-0.5); Hemoglobin 12.6 g/dL (12.5-18.0); Lymphocyte (Absolute #) 1.65 x10^3/uL (1.0-4.6); Lymphocytes % 9.2 % (24.0-44.0); Mean Cell Volume 88.8 fL (78-100); Mean Corpuscular Hemoglobin 29.4 pg (26-32); Mean Corpuscular Hgb Concent. 33.2 g/dL (32-36); Mean Platelet Volume 9.8 fL (7.5-11.0); Monocyte (Absolute #) 1.33 x10^3/uL (0.0-1.3); Monocytes % 7.4 % (0.0-12.0); Neutrophil % 82.1 % (36.0-66.0); Platelet Count 178 x10^3/uL (150-450); Red Blood Count 4.28 x10^6/uL (4.1-5.6); Red Cell Distribution Width 14.3 % (11.5-14.0)
[2022-03-03 06:24] LABS: ALBUMIN 2.9 g/dL (3.5-5.0); ALKALINE PHOSPHATASE 50 U/L (38-126); ANION GAP 6.4 MEQ/L (5-15); BLOOD UREA NITROGEN 16 mg/dL (9-20); CHLORIDE 98 mmol/L (98-107); Calcium 7.9 mg/dL (8.4-10.2); Carbon Dioxide 27 mmol/L (22-30); EST GLOMERULAR FILTRATION RATE > 60.0 ML/MIN; Glucose 92 mg/dL (74-106); Potassium 3.4 mmol/L (3.5-5.1); SGOT/AST 17 U/L (17-59); SGPT/ALT 15 U/L (0-50); SODIUM 129 mmol/L (137-145); Total Protein 5.6 g/dL (6.3-8.2)
[2022-03-03] MEDS: COREG 12.5 MG PO SCH ×2 (09:32→20:36)
[2022-03-03] MEDS: ELIQUIS 2.5 MG TABLET PO SCH ×2 (09:32→20:35)
[2022-03-03] MEDS: hydroDIURIL 25 MG PO SCH (09:32)
[2022-03-03] MEDS: Pepcid 20 MG PO SCH ×2 (09:32→20:36)
[2022-03-03] MEDS: NORVASC 5 MG PO SCH (09:32)
[2022-03-03] MEDS: Klor Con PO SCH (09:32)
[2022-03-03] MEDS: PROTONIX 40 MG IV IV SCH (09:33)
[2022-03-03] MEDS: ROCEPHIN 1 Gm-D5w 50 ml Bag** 1 G/50 ML IVPB IV SCH (09:36)
[2022-03-03] MEDS ORDERED: NON-FORMULARY ITEM (Potassium Chloride [Potassium Chloride] 10 MEQ Tablet.Er) PO SCH (10:00)
--- NOTE | 2022-03-03 15:08 | PCM.HP ---
History of Present Illness - Chief Complaint Chief Complaint: UTI History of Present Illness: Mr.MARX MARSHALL is a 66 year old male patient of Shavon Wheatley NP/Dr Hernandez who has remote Hx CVA with chronic right hemiparesis and indwelling suprapubic that was changed recently at [facility]. This morning he became confused and was lethargic. ER evaluation showed WBC = 23,300. UA 50-[address] Head and CXR no acute findings. Patient is admitted for IV antibiotics awaiting cultures. - Review of Systems Constitutional: Chills, Lethargy Eyes: No Symptoms Ears, Nose, & Throat: No Symptoms Respiratory: No Symptoms Cardiac: No Symptoms Abdominal/Gastrointestinal: Abdominal Pain (low abdomen) Genitourinary Symptoms: Other (suprapubic cateter) Musculoskeletal: Other (spasm/pain chronic RUE) Neurological: No Symptoms Psychological: Depression Endocrine: No Symptoms Hematologic/Lymphatic: No Symptoms (on blood thinner post CVA), Other Immunological/Allergic: No Symptoms Medications & Allergies Home Medications: Home Medication List Amlodipine Besylate 5 mg [Norvasc 5 mg] 5 mg PO DAILY 01/09/20 [History Confirmed 03/02/22] Apixaban [Eliquis 2.5 mg Tablet] 5 mg PO BID 01/09/20 [History Confirmed 03/02/22] Famotidine 20 mg [Pepcid 20 MG] 20 mg PO BID 01/09/20 [History Confirmed 03/02/22] carvediloL [Coreg] 12.5 mg PO BID 01/09/20 [History Confirmed 03/02/22] Baclofen 10 mg [Lioresal 10 mg] 10 mg PO Q8H PRN 03/02/22 [History Confirmed 03/02/22] Ergocalciferol (Vitamin D2) [Vitamin D2] 1 cap PO WEEKLY 03/02/22 [History Confirmed 03/02/22] Hydrochlorothiazide 25 mg [hydroDIURIL 25 MG] 25 mg PO DAILY 03/02/22 [History Confirmed 03/02/22] Potassium Chloride 10 meq PO DAILY 03/02/22 [History Confirmed 03/02/22] Cefuroxime Axetil 500 mg [Ceftin 500 mg] 500 mg PO BID 5 Days #10 tablet 03/05/22 [Rx] Cyclobenzaprine HCl 10 mg [Cyclobenzaprine 10 MG] 10 mg PO HS 30 Days #30 tablet 03/05/22 [Rx] Allergies/Adverse Reactions: Allergies Allergy/AdvReac Type Severity Reaction Status Date / Time No Known Drug Allergies Allergy Verified 03/02/22 12:18 - Past Medical History Past Medical History: Yes Neurological History: Stroke ENT History: No Pertinent History Cardiac History: No Pertinent History Respiratory History: No Pertinent History Endocrine Medical History: No Pertinent History Musculoskelatal History: No Pertinent History GI Medical History: No Pertinent History History: No Pertinent History Pyscho-Social History: No Pertinent History Male Reproductive Disorders: No Pertinent History Comment: hx of bph. pt has suprapubic cath in place. 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 - Past Surgical History Past Surgical History: Yes Neuro Surgical History: No Pertinent History Cardiac History: No Pertinent History Respiratory Surgery: No Pertinent History GI Surgical History: No Pertinent History Genitourinary Surgical Hx: No Pertinent History Musculskeletal Surgical Hx: No Pertinent History Male Surgical History: No Pertinent History Other Surgical History: suprapubic cath placement - Social History Smoking Status: Never smoker Exposure to second hand smoke: No Alcohol: None Drug Use: none - Physical Exam Vital Signs: Vital Signs - 24 hr Temp Pulse Resp BP Pulse Ox 03/03/22 11:55 98.8 F 85 18 128/68 95 03/03/22 07:15 97.5 F 93 H 18 104/53 94 L 03/03/22 04:00 98.0 F 90 18 108/61 95 03/02/22 23:32 97.7 F 98 H 18 120/69 96 03/02/22 20:02 98 03/02/22 20:00 99.1 F 104 H 20 123/66 95 03/02/22 16:19 96.8 F 102 H 18 155/73 97 General Appearance: no apparent distress Neurologic Exam: alert, oriented x 3, cooperative, normal mood/affect Eye Exam: eyes nml inspection Ears, Nose, Throat Exam: normal ENT inspection Neck Exam: normal inspection Respiratory Exam: normal breath sounds Cardiovascular Exam: regular rate/rhythm Gastrointestinal/Abdomen Exam: soft, tenderness (suprapubic and left flank , suprapubic catheter in place) Rectal Exam: not done Extremity Exam: other (right hemiparesis RUE contracted) Skin Exam: normal color, warm, dry Results - Labs Lab/Micro Results: Lab Results-Last 24 Hours 03/02/22 03/02/22 03/02/22 Range/Units 14:45 16:08 20:25 WBC (4.0-10.5) x10^3/uL RBC (4.1-5.6) x10^6/uL Hgb (12.5-18.0) g/dL Hct (42-50) % MCV (78-100) fL MCH (26-32) pg MCHC (32-36) g/dL RDW (11.5-14.0) % Plt Count (150-450) x10^3/uL MPV (7.5-11.0) fL Gran % (36.0-66.0) % Immature Gran % (Auto) (0.00-0.4) % Nucleat RBC Rel Count (0.00-0.1) % Eos # (Auto) (0-0.5) x10^3/uL Immature Gran # (Auto) (0.00-0.03) x10^3u/L Absolute Lymphs (auto) (1.0-4.6) x10^3/uL Absolute Monos (auto) (0.0-1.3) x10^3/uL Absolute Nucleated RBC (0.00-0.01) x10^3u/L Lymphocytes % (24.0-44.0) % Monocytes % (0.0-12.0) % Eosinophils % (0.00-5.0) % Basophils % (0.0-0.4) % Absolute Granulocytes (1.4-6.9) x10^3/uL Basophils # (0-0.4) x10^3/uL Sodium (137-145) mmol/L Potassium (3.5-5.1) mmol/L Chloride (98-107) mmol/L Carbon Dioxide (22-30) mmol/L Anion Gap (5-15) MEQ/L BUN (9-20) mg/dL Creatinine (0.66-1.25) mg/dL Estimated GFR ML/MIN Glucose (74-106) mg/dL Calcium (8.4-10.2) mg/dL Total Bilirubin (0.2-1.3) mg/dL AST (17-59) U/L ALT (0-50) U/L Alkaline Phosphatase (38-126) U/L Troponin I < 0.012 < 0.012 (0.000-0.034) ng/mL Serum Total Protein (6.3-8.2) g/dL Albumin (3.5-5.0) g/dL Influenza Type A Ag NEGATIVE (NEGATIVE) Influenza Type B Ag NEGATIVE (NEGATIVE) RSV (PCR) NEGATIVE (Negative) SARS-CoV-2 (PCR) NEGATIVE (NEGATIVE) 03/03/22 03/03/22 Range/Units 05:37 05:37 WBC 18.0 H (4.0-10.5) x10^3/uL RBC 4.28 (4.1-5.6) x10^6/uL Hgb 12.6 (12.5-18.0) g/dL Hct 38.0 L (42-50) % MCV 88.8 (78-100) fL MCH 29.4 (26-32) pg MCHC 33.2 (32-36) g/dL RDW 14.3 H (11.5-14.0) % Plt Count 178 (150-450) x10^3/uL MPV 9.8 (7.5-11.0) fL Gran % 82.1 H (36.0-66.0) % Immature Gran % (Auto) 0.7 H (0.00-0.4) % Nucleat RBC Rel Count 0.0 (0.00-0.1) % Eos # (Auto) 0.04 (0-0.5) x10^3/uL Immature Gran # (Auto) 0.12 H (0.00-0.03) x10^3u/L Absolute Lymphs (auto) 1.65 (1.0-4.6) x10^3/uL Absolute Monos (auto) 1.33 H (0.0-1.3) x10^3/uL Absolute Nucleated RBC 0.00 (0.00-0.01) x10^3u/L Lymphocytes % 9.2 L (24.0-44.0) % Monocytes % 7.4 (0.0-12.0) % Eosinophils % 0.2 (0.00-5.0) % Basophils % 0.4 (0.0-0.4) % Absolute Granulocytes 14.81 H (1.4-6.9) x10^3/uL Basophils # 0.07 (0-0.4) x10^3/uL Sodium 129 L (137-145) mmol/L Potassium 3.4 L (3.5-5.1) mmol/L Chloride 98 (98-107) mmol/L Carbon Dioxide 27 (22-30) mmol/L Anion Gap 6.4 (5-15) MEQ/L BUN 16 (9-20) mg/dL Creatinine 1.10 (0.66-1.25) mg/dL Estimated GFR > 60.0 ML/MIN Glucose 92 (74-106) mg/dL Calcium 7.9 L D (8.4-10.2) mg/dL Total Bilirubin 1.00 (0.2-1.3) mg/dL AST 17 (17-59) U/L ALT 15 (0-50) U/L Alkaline Phosphatase 50 (38-126) U/L Troponin I (0.000-0.034) ng/mL Serum Total Protein 5.6 L (6.3-8.2) g/dL Albumin 2.9 L (3.5-5.0) g/dL Influenza Type A Ag (NEGATIVE) Influenza Type B Ag (NEGATIVE) RSV (PCR) (Negative) SARS-CoV-2 (PCR) (NEGATIVE) Microbiology 03/02/22 Unknown Urine Culture - Preliminary Urine, Void GRAM NEGATIVE ID AND SENSITIVITY PENDING - Radiology Impressions Radiology Exams & Impressions: Radiology Procedures Category Date Time Status CHEST 1 VIEW (PORTABLE) Stat Exams 03/02/22 11:56 Completed HEAD WITHOUT CONTRAST [CT] Stat Exams 03/02/22 11:52 Completed Assessment/Plan (1) Acute cystitis with hematuria Status: Acute Assessment & Plan: IV antibiotic Rocephin started in ER ,WBC has improved overnight. 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
[2022-03-03] MEDS: Cyclobenzaprine 10 MG PO SCH (20:36)
[2022-03-04] MEDS: Sodium Chloride 0.9% 1000 ML 1,000 ML IV SCH ×3 (00:26→21:21)
[2022-03-04] MEDS: LIORESAL 10 MG PO PRN ×2 (05:33→21:22)
[2022-03-04] MEDS: ELIQUIS 2.5 MG TABLET PO SCH ×2 (09:38→21:22)
[2022-03-04] MEDS: NORVASC 5 MG PO SCH (09:38)
[2022-03-04] MEDS: hydroDIURIL 25 MG PO SCH (09:38)
[2022-03-04] MEDS: Klor Con PO SCH (09:38)
[2022-03-04] MEDS: COREG 12.5 MG PO SCH ×2 (09:38→21:23)
[2022-03-04] MEDS: Pepcid 20 MG PO SCH ×2 (09:38→21:23)
[2022-03-04] MEDS: PROTONIX 40 MG IV IV SCH (09:38)
[2022-03-04] MEDS: ROCEPHIN 1 Gm-D5w 50 ml Bag** 1 G/50 ML IVPB IV SCH (09:39)
[2022-03-04 11:32] LABS: Hematocrit 42.3 % (42-50); Hemoglobin 13.7 g/dL (12.5-18.0); Mean Cell Volume 92.8 fL (78-100); Mean Corpuscular Hgb Concent. 32.4 g/dL (32-36); Mean Platelet Volume 10.1 fL (7.5-11.0); Platelet Count 175 x10^3/uL (150-450); Red Blood Count 4.56 x10^6/uL (4.1-5.6); Red Cell Distribution Width 14.2 % (11.5-14.0)
[2022-03-04 12:53] LABS: ALBUMIN 3.4 g/dL (3.5-5.0); ALKALINE PHOSPHATASE 53 U/L (38-126); ANION GAP 8.9 MEQ/L (5-15); BLOOD UREA NITROGEN 13 mg/dL (9-20); CHLORIDE 98 mmol/L (98-107); Calcium 8.3 mg/dL (8.4-10.2); Carbon Dioxide 29 mmol/L (22-30); Creatinine 1 1.04 mg/dL (0.66-1.25); EST GLOMERULAR FILTRATION RATE > 60.0 ML/MIN; Glucose 84 mg/dL (74-106); Potassium 3.6 mmol/L (3.5-5.1); SGOT/AST 19 U/L (17-59); SGPT/ALT 16 U/L (0-50); SODIUM 132 mmol/L (137-145); Total Protein 6.4 g/dL (6.3-8.2); Vitamin B12 205 pg/mL (239-931)
--- NOTE | 2022-03-04 13:30 | PCM.NOTE ---
Date and Time: 03/04/22 1322 Subjective Assessment: Patient states he is starting to feel better ,good appetite. Urine cult grew Klebsiella sens to current IV Rocephin. Objective Exam General Appearance: no apparent distress Neurologic Exam: alert, oriented x 3, normal mood/affect Respiratory Exam: normal breath sounds Cardiovascular Exam: regular rate/rhythm Gastrointestinal/Abdomen Exam: soft, tenderness (suprapubic) OBJECTIVE DATA Vital Signs: Vital Signs - 24 hr Temp Pulse Resp BP Pulse Ox 03/04/22 11:56 98.7 F 93 H 16 138/67 92 L 03/04/22 08:00 98.6 F 97 H 18 143/71 93 L 03/04/22 04:00 98.9 F 94 H 17 134/72 95 03/03/22 23:41 98.4 F 90 18 124/68 95 03/03/22 16:00 98.9 F 91 H 17 137/72 96 Pain Assessment - Last Documented Pain Intensity 0 Intake and Output: Intake & Output 03/02/22 03/03/22 03/04/22 03/05/22 11:59 11:59 11:59 11:59 Intake Total 2889 3875 240 Output Total 1000 3500 Balance 1889 375 240 Weight 98.6 kg Lab Results: Lab Results-Last 24 Hours 03/04/22 Range/Units 11:18 WBC 11.0 H (4.0-10.5) x10^3/uL RBC 4.56 (4.1-5.6) x10^6/uL Hgb 13.7 (12.5-18.0) g/dL Hct 42.3 (42-50) % MCV 92.8 (78-100) fL MCH 30.0 (26-32) pg MCHC 32.4 (32-36) g/dL RDW 14.2 H (11.5-14.0) % Plt Count 175 (150-450) x10^3/uL MPV 10.1 (7.5-11.0) fL Assessment/Plan (1) UTI (urinary tract infection) Current Visit: Yes Status: Acute Assessment & Plan: Klebsiella sens to Rocephin- continue Rocephin Code(s): N39.0 - URINARY TRACT INFECTION, SITE NOT SPECIFIED (2) Spasticity as late effect of cerebrovascular accident (CVA) Current Visit: Yes Status: Chronic Assessment & Plan: RUE- patient states Flexeril plus Baclofen has helped but PCP Dr Hernandez stopped the Flexeril now with increased spacticity Code(s): I69.398 - OTHER SEQUELAE OF CEREBRAL INFARCTION; R25.2 - CRAMP AND SPASM
[2022-03-04] MEDS: Cyclobenzaprine 10 MG PO SCH ×2 (14:29→21:22)
[2022-03-04 20:35] VITALS: O2SAT 96
[2022-03-05 05:14] LABS: Basophil (Absolute #) 0.06 x10^3/uL (0-0.4); Eosinophil % 1.2 % (0.00-5.0); Eosinophil (Absolute #) 0.07 x10^3/uL (0-0.5); Hematocrit 41.4 % (42-50); Hemoglobin 12.7 g/dL (12.5-18.0); Lymphocytes % 15.7 % (24.0-44.0); Mean Cell Volume 97.4 fL (78-100); Mean Corpuscular Hemoglobin 29.9 pg (26-32); Mean Corpuscular Hgb Concent. 30.7 g/dL (32-36); Mean Platelet Volume 9.9 fL (7.5-11.0); Monocyte (Absolute #) 0.76 x10^3/uL (0.0-1.3); Monocytes % 13.3 % (0.0-12.0); Neutrophil % 68.3 % (36.0-66.0); Platelet Count 152 x10^3/uL (150-450); Red Blood Count 4.25 x10^6/uL (4.1-5.6); Red Cell Distribution Width 14.4 % (11.5-14.0); White Blood Count 5.7 x10^3/uL (4.0-10.5)
[2022-03-05 05:36] LABS: ALKALINE PHOSPHATASE 46 U/L (38-126); ANION GAP 8.7 MEQ/L (5-15); BLOOD UREA NITROGEN 11 mg/dL (9-20); CHLORIDE 98 mmol/L (98-107); Calcium 7.7 mg/dL (8.4-10.2); Carbon Dioxide 26 mmol/L (22-30); Creatinine 1 1.02 mg/dL (0.66-1.25); EST GLOMERULAR FILTRATION RATE > 60.0 ML/MIN; Glucose 89 mg/dL (74-106); Potassium 3.7 mmol/L (3.5-5.1); SGOT/AST 18 U/L (17-59); SGPT/ALT 15 U/L (0-50); SODIUM 129 mmol/L (137-145); Total Protein 5.7 g/dL (6.3-8.2)
[2022-03-05] MEDS: Sodium Chloride 0.9% 1000 ML 1,000 ML IV SCH (06:31)
[2022-03-05 07:20] VITALS: BP 148/79; PULSE 89
[2022-03-05] MEDS: NORVASC 5 MG PO SCH (09:29)
[2022-03-05] MEDS: COREG 12.5 MG PO SCH (09:29)
[2022-03-05] MEDS: Klor Con PO SCH (09:29)
[2022-03-05] MEDS: hydroDIURIL 25 MG PO SCH (09:29)
[2022-03-05] MEDS: ELIQUIS 2.5 MG TABLET PO SCH (09:29)
[2022-03-05] MEDS: Pepcid 20 MG PO SCH (09:29)
[2022-03-05] MEDS: Cyclobenzaprine 10 MG PO SCH (09:29)
--- NOTE | 2022-03-05 09:31 | PCM.DCORD ---
- Discharge Disposition: HOME HEALTH SERVICE Condition: Stable Prescriptions: New Cefuroxime Axetil 500 mg [Ceftin 500 mg] 500 mg PO BID 5 Days #10 tablet Continue Famotidine 20 mg [Pepcid 20 MG] 20 mg PO BID Apixaban [Eliquis 2.5 mg Tablet] 5 mg PO BID carvediloL [Coreg] 12.5 mg PO BID Amlodipine Besylate 5 mg [Norvasc 5 mg] 5 mg PO DAILY Hydrochlorothiazide 25 mg [hydroDIURIL 25 MG] 25 mg PO DAILY Ergocalciferol (Vitamin D2) [Vitamin D2] 1 cap PO WEEKLY Potassium Chloride 10 meq PO DAILY Baclofen 10 mg [Lioresal 10 mg] 10 mg PO Q8H PRN PRN Reason: muscle relax Instructions: Urinary Tract Infection, Adult (DC) Follow up with: KENAN RING DO [ACTIVE STAFF] - 03/12/22 10:30 am
[2022-03-05] MEDS: PROTONIX 40 MG IV IV SCH (09:32)
[2022-03-05] MEDS: ROCEPHIN 1 Gm-D5w 50 ml Bag** 1 G/50 ML IVPB IV SCH (09:33)
[2022-03-05] MEDS ORDERED: VITAMIN D2 PO SCH (10:00)
[2022-03-06 16:25] LABS: PSA, Free 1.38 ng/mL; Prostate Specific Ag 9.8 ng/mL (0.0-4.0)
== END 2022-03-05 10:05 | disposition home health service (06) ==
LOC: ED 11:46 → MED SURG 15:57
PROVIDERS: ADMIT Family Medicine; ATTEND Family Medicine
DX: N30.01 Acute cystitis with hematuria (principal); I69.398 Other sequelae of cerebral infarction; I69.351 Hemiplegia and hemiparesis following cerebral infarction affecting right dominant side; D72.829 Elevated white blood cell count, unspecified; R53.83 Other fatigue; R25.2 Cramp and spasm; Z79.01 Long term (current) use of anticoagulants; Z93.59 Other cystostomy status; Z79.899 Other long term (current) drug therapy; Z20.828 Contact with and (suspected) exposure to other viral communicable diseases
CPT/HCPCS: 0241U; 36415; 70450; 71045; 80053; 80307; 81015; 82607; 83605; 83880; 84153; 84154; 84443; 84484; 85025; 85027; 85610; 85730; 87040; 87077; 87086; 87186; 93005; 96360; 96365; 99285; G0378; J0696; A9270-GY

== ENCOUNTER 2022-03-16 17:46 | Emergency (ER) | payer MEDICARE ==
--- NOTE | 2022-03-16 17:54 | ERPHSYRPT ---
- History of Present Illness Time Seen by Provider: 03/16/22 17:54 Source: patient, EMS Exam Limitations: no limitations Physician History: This is a 66-year-old white male patient has had a stroke in the past and has hemiparesis. He also has a suprapubic urinary bladder catheter in place. It became dislodged last evening and he went to [facility] emergency department where they placed a 12 Norwegian Robles catheter instead of a 14 Norwegian that he normally uses. There was some leakage around the catheter today but it was not draining well. Patient advanced the catheter himself at home today and it drained approximately 800 to 900 mL of urine. Later, it appeared to him that the catheter became dislodged and it was no longer draining. Activites at Onset: none Quality: pressure Onset Location: unknown Pain Radiation: none Severity of Pain-Max: none Severity of Pain-Current: none Sexual intercourse history: non-contributory Allergies/Adverse Reactions: No Known Drug Allergies Allergy (Verified 03/16/22 17:58) Home Medications: Amlodipine Besylate 5 mg [Norvasc 5 mg] 5 mg PO DAILY 01/09/20 [History] Apixaban [Eliquis 2.5 mg Tablet] 5 mg PO BID 01/09/20 [History] Famotidine 20 mg [Pepcid 20 MG] 20 mg PO BID 01/09/20 [History] carvediloL [Coreg] 12.5 mg PO BID 01/09/20 [History] Baclofen 10 mg [Lioresal 10 mg] 10 mg PO Q8H PRN 03/02/22 [History] Ergocalciferol (Vitamin D2) [Vitamin D2] 1 cap PO WEEKLY 03/02/22 [History] Hydrochlorothiazide 25 mg [hydroDIURIL 25 MG] 25 mg PO DAILY 03/02/22 [History] Potassium Chloride 10 meq PO DAILY 03/02/22 [History] Hx Tetanus, Diphtheria Vaccination/Date Given: Yes Hx Influenza Vaccination/Date Given: No Hx Pneumococcal Vaccination/Date Given: No Travel Risk - International Travel Have you traveled outside of the country in past 3 weeks: No - Coronavirus Screening Are you exhibiting any of the following symptoms?: No Close contact with a COVID-19 positive Pt in past 14-21 Days: No - Vaccine Status Have you recieved a Covid-19 vaccination: Yes Mold Laminator: [place] - Vaccination Dates Date of 2cond Vaccination (if applicable): 08/16/20 - Past Medical History Pertinent Past Medical History: Yes Neurological History: Stroke ENT History: No Pertinent History Cardiac History: No Pertinent History Respiratory History: No Pertinent History Endocrine Medical History: No Pertinent History Musculoskeletal History: No Pertinent History GI Medical History: No Pertinent History History: No Pertinent History Psycho-Social History: No Pertinent History Male Reproductive Disorders: No Pertinent History Other Medical History: hx of bph. pt has suprapubic cath in place. 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 - Past Surgical History Past Surgical History: Yes Neuro Surgical History: No Pertinent History Cardiac: No Pertinent History Respiratory: No Pertinent History Gastrointestinal: No Pertinent History Genitourinary: No Pertinent History Musculoskeletal: No Pertinent History Male Surgical History: No Pertinent History Other Surgical History: suprapubic cath placement - Social History Smoking Status: Never smoker Exposure to second hand smoke: No Drug Use: none Patient Lives Alone: No - Review of Systems Constitutional: No Symptoms Eyes: No Symptoms Ears, Nose, & Throat: No Symptoms Respiratory: No Symptoms Cardiac: No Symptoms Abdominal/Gastrointestinal: No Symptoms Genitourinary Symptoms: Other (Robles catheter complication) Musculoskeletal: No Symptoms Skin: No Symptoms Neurological: No Symptoms Psychological: No Symptoms Endocrine: No Symptoms Hematologic/Lymphatic: No Symptoms Immunological/Allergic: No Symptoms All Other Systems: Reviewed and Negative - Nursing Vital Signs Nursing Vital Signs: Initial Vital Signs Temperature 97.6 F 03/16/22 17:47 Pulse Rate 90 03/16/22 17:47 Respiratory Rate 18 03/16/22 17:47 Blood Pressure 162/97 03/16/22 17:47 O2 Sat by Pulse Oximetry 96 03/16/22 17:47 Pain Scale Pain Intensity 0 - Physical Exam General Appearance: no apparent distress, alert, anxiety Eye Exam: PERRL/EOMI, eyes nml inspection Ears, Nose, Throat Exam: normal ENT inspection, moist mucous membranes Neck Exam: normal inspection, non-tender, supple, full range of motion Respiratory Exam: airway intact, No chest tenderness, No respiratory distress Gastrointestinal/Abdomen Exam: soft, normal bowel sounds, other (12 Norwegian Robles catheter nearly completely out at the time examination), No tenderness Rectal Exam: not done Back Exam: normal inspection, normal range of motion, No CVA tenderness, No vertebral tenderness Neurologic Exam: alert, oriented x 3, cooperative, stock order lister II-XII nml as tested, normal mood/affect, nml cerebellar function, nml station & gait, sensation nml Skin Exam: normal color, warm, dry Lymphatic Exam: No adenopathy SpO2 Interpretation: normal O2 Delivery: Room Air Procedures - Additional Procedures Progress: Timeout performed at approximately 6:20 PM suprapubic catheter 14 Norwegian placed after prepping the area with Betadine swabs. Balloon inflated with approximately 7 mL of normal saline fluid. Excellent urinary flow from the Robles catheter. - Course Nursing assessment & vital signs reviewed: Yes - Progress Progress: improved Counseled pt/family regarding: diagnosis, need for follow-up - Departure Departure Disposition: Home Clinical Impression: Suprapubic catheter dysfunction, Encounter for replacement of urinary catheter Condition: Stable Critical Care Time: No Referrals: DANAE BLOOM SYSTEMS SECURITY CONSULTANT [Primary Care Provider] - Follow up/PCP as directed Additional Instructions: Continue your suprapubic urinary bladder catheter care. Follow-up with your primary care doctor as needed
[2022-03-16 21:05] VITALS: BP 150/134; PULSE 80; O2SAT 95
== END 2022-03-16 19:47 | disposition home or self-care (01) ==
LOC: ED 17:46
DX: T83.028A Displacement of other urinary catheter, initial encounter (principal); Z46.6 Encounter for fitting and adjustment of urinary device; Z79.01 Long term (current) use of anticoagulants; Z79.899 Other long term (current) drug therapy
CPT/HCPCS: 51705; 87077; 87086; 87186; 99283

== ENCOUNTER 2022-08-22 14:45 | Emergency (ER) | payer MEDICARE ==
--- NOTE | 2022-08-22 16:08 | ERPHSYRPT ---
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, EMS Patient Subjective Stated Complaint: Urinary retention-Suprapubic catheter needs changed Triage Nursing Assessment: Patient brought into ED per EMS and transferred to bed with assist of 2. Patient A+O X.3 Patient's skin pink, warm and dry. Patient states his home health nurse was at his home to change his suprapubic catheter when she was not able to get it. Patient denies pain or discomfort. Physician History: 67 yo WM w supra-pubic catheter which dislodges frequently presents per [facility] w dislodged catheter for approx 90 minutes. Home health unable to change catheter. No other complaints at this time. Timing/Duration: hour(s) (90 minutes) Activites at Onset: rest Pain Radiation: none Severity of Pain-Max: none Severity of Pain-Current: none Modifying Factors: Improves With: nothing Associated Symptoms: denies symptoms Allergies/Adverse Reactions: No Known Drug Allergies Allergy (Verified 08/22/22 14:48) Home Medications: Amlodipine Besylate 5 mg [Norvasc 5 mg] 5 mg PO DAILY 01/09/20 [History] Apixaban [Eliquis 2.5 mg Tablet] 5 mg PO BID 01/09/20 [History] Famotidine 20 mg [Pepcid 20 MG] 20 mg PO BID 01/09/20 [History] carvediloL [Coreg] 12.5 mg PO BID 01/09/20 [History] Baclofen 10 mg [Lioresal 10 mg] 10 mg PO Q8H PRN 03/02/22 [History] Ergocalciferol (Vitamin D2) [Vitamin D2] 1 cap PO WEEKLY 03/02/22 [History] Hydrochlorothiazide 25 mg [hydroDIURIL 25 MG] 25 mg PO DAILY 03/02/22 [History] Potassium Chloride 10 meq PO DAILY 03/02/22 [History] Hx Tetanus, Diphtheria Vaccination/Date Given: Yes Hx Influenza Vaccination/Date Given: No Hx Pneumococcal Vaccination/Date Given: No Travel Risk - International Travel Have you traveled outside of the country in past 3 weeks: No - Coronavirus Screening Are you exhibiting any of the following symptoms?: No Close contact with a COVID-19 positive Pt in past 14-21 Days: No - Vaccine Status Have you recieved a Covid-19 vaccination: Yes 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 pt has suprapubic cath in place. 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 - Past Surgical History Past Surgical History: Yes Neuro Surgical History: No Pertinent History Cardiac: No Pertinent History Respiratory: No Pertinent History Gastrointestinal: No Pertinent History Genitourinary: No Pertinent History Musculoskeletal: No Pertinent History Male Surgical History: No Pertinent History Other Surgical History: suprapubic cath placement - Social History Smoking Status: Never smoker Exposure to second hand smoke: No Drug Use: none Patient Lives Alone: No - Review of Systems Constitutional: No Symptoms Eyes: No Symptoms Ears, Nose, & Throat: No Symptoms Respiratory: No Symptoms Cardiac: No Symptoms Abdominal/Gastrointestinal: No Symptoms Musculoskeletal: No Symptoms Skin: No Symptoms Neurological: No Symptoms Psychological: No Symptoms Endocrine: No Symptoms Hematologic/Lymphatic: No Symptoms Immunological/Allergic: No Symptoms - Nursing Vital Signs Nursing Vital Signs: Initial Vital Signs Temperature 97.6 F 08/22/22 14:50 Pulse Rate 92 H 08/22/22 14:50 Respiratory Rate 18 08/22/22 14:50 Blood Pressure 165/94 08/22/22 14:50 O2 Sat by Pulse Oximetry 97 08/22/22 14:50 Pain Scale Pain Intensity 0 Hypertensive - Physical Exam General Appearance: no apparent distress Eye Exam: PERRL/EOMI, eyes nml inspection Ears, Nose, Throat Exam: normal ENT inspection, TMs normal, pharynx normal, moist mucous membranes Neck Exam: normal inspection, non-tender, supple, full range of motion, No meningismus, No mass, No Brudzinski, No Kernig's Respiratory Exam: normal breath sounds, lungs clear, airway intact, No respiratory distress Cardiovascular Exam: regular rate/rhythm, normal heart sounds, normal peripheral pulses, capillary refill <2 sec, No murmur Gastrointestinal/Abdomen Exam: soft, normal bowel sounds, other (Supra-pubic catheter out) Back Exam: normal inspection Extremity Exam: normal inspection Neurologic Exam: alert, oriented x 3, cooperative, pilot safety inspector II-XII nml as tested, normal mood/affect, sensation nml Skin Exam: normal color, warm, dry Lymphatic Exam: No adenopathy SpO2 Interpretation: normal SpO2: 97 O2 Delivery: Room Air - Course Nursing assessment & vital signs reviewed: Yes Ordered Tests: Active Orders 24 hr Category Date Time Status Robles [Catheter-Jordan Robles] STAT Care 08/22/22 15:45 Completed CULTURE,URINE Stat Lab 08/22/22 16:22 Received UA W/RFX UR CULTURE Stat Lab 08/22/22 16:22 Completed Lab/Rad Data: Laboratory Results 08/22/22 Range/Units 16:22 Urine Color Yellow (Yellow) Urine Appearance Cloudy A (Clear) Urine pH 7.0 (4.6-8.0) Ur Specific [place] 1.010 (1.005-1.030) Urine Protein 30 (Negative) Urine Glucose (UA) Negative (Negative) mg/dL Urine Ketones Negative (Negative) Urine Blood Large A (Negative) Urine Nitrite Negative (Negative) Urine Bilirubin Negative (Negative) Urine Urobilinogen 2.0 A (0.2) mg/dL Ur Leukocyte Esterase Large A (Negative) U Hyaline Cast (Auto) NONE SEEN (0-2) /LPF Urine Microscopic RBC >100 A (0-5) /HPF Urine Microscopic WBC 51-100 A (0-5) /HPF Ur Epithelial Cells Rare (None Seen) /HPF Urine Bacteria None Seen (None Seen) /HPF Urine Culture Reflexed ORDERED SEPARATELY (NO) - Progress Progress Note: 08/22/22 16:05 Nursing note and vital signs reviewed No food or housing insecurities noted Nursing unable to place supra-pubic catheter Physician able to place 12Fr catheter after multiple attempts w larger sizes Spoke w Dr. George's office-will see pt on 08/24 at 13:30 Counseled pt/family regarding: diagnosis, need for follow-up Medical Desision Making - Discussion of managment Care discussed with:: specialist (Dr. George's FABRICATING MACHINE OPERATOR) Agreed on:: Treatment plan Will see patient: In office - Risk of complications Low Risk: Low risk of morbidity from additional dx testing or treatment - Departure Departure Disposition: Home Clinical Impression: Encounter for care or replacement of suprapubic tube Condition: Stable Critical Care Time: No Referrals: ROGE BYRNE MD [Primary Care Provider] - Follow up/PCP as directed Instructions: Urinary Retention (DC) Additional Instructions: Dr. George 08/24/22 1:30 PM Return to ER as needed
[2022-08-22 16:19] VITALS: BP 150/90; PULSE 81
[2022-08-22 17:02] LABS: Appearance Cloudy (Clear); Bacteria None Seen /HPF (None Seen); Bilirubin Negative (Negative); Blood Large (Negative); Epithelial Cells Rare /HPF (None Seen); Glucose, Urine Negative (Negative); Hyaline Casts NONE SEEN /LPF (0-2); Ketones Negative (Negative); Leukocyte Esterase Large (Negative); Nitrite Negative (Negative); Protein,Urine Dip 30 (Negative); RBC >100 /HPF (0-5); WBC 51-100 /HPF (0-5)
[2022-08-22 17:03] LABS: ADD URINE CULTURE? ORDERED SEPARATELY (NO)
[2022-08-22 19:15] VITALS: O2SAT 97
== END 2022-08-22 16:19 | disposition home or self-care (01) ==
LOC: ED 14:45
DX: Z43.6 Encounter for attention to other artificial openings of urinary tract (principal); R33.9 Retention of urine, unspecified; I69.359 Hemiplegia and hemiparesis following cerebral infarction affecting unspecified side; Z79.01 Long term (current) use of anticoagulants; Z79.899 Other long term (current) drug therapy; Z20.828 Contact with and (suspected) exposure to other viral communicable diseases
CPT/HCPCS: 51702; 81001; 87077; 87086; 87186; 99283

== ENCOUNTER 2022-09-24 13:11 | Observation (INO) | payer MEDICARE ==
[2022-09-24 13:37] LABS: Absolute Neutrophil Ct (ANC) 8.65 x10^3/uL (1.4-6.9); BASOPHIL % 1.1 % (0.0-0.4); Basophil (Absolute #) 0.12 x10^3/uL (0-0.4); Eosinophil % 2.3 % (0.00-5.0); Eosinophil (Absolute #) 0.26 x10^3/uL (0-0.5); Hematocrit 46.2 % (42-50); Hemoglobin 15.3 g/dL (12.5-18.0); IMMATURE GRAN # 0.04 x10^3u/L (0.00-0.03); IMMATURE GRAN % 0.4 % (0.00-0.4); Lymphocyte (Absolute #) 1.57 x10^3/uL (1.0-4.6); Lymphocytes % 13.8 % (24.0-44.0); Mean Cell Volume 91.5 fL (78-100); Mean Corpuscular Hemoglobin 30.3 pg (26-32); Mean Corpuscular Hgb Concent. 33.1 g/dL (32-36); Mean Platelet Volume 9.7 fL (7.5-11.0); Monocyte (Absolute #) 0.74 x10^3/uL (0.0-1.3); Monocytes % 6.5 % (0.0-12.0); Neutrophil % 75.9 % (36.0-66.0); Platelet Count 218 x10^3/uL (150-450); Red Blood Count 5.05 x10^6/uL (4.1-5.6); Red Cell Distribution Width 13.4 % (11.5-14.0); White Blood Count 11.4 x10^3/uL (4.0-10.5)
[2022-09-24 13:51] LABS: ALBUMIN 4.3 g/dL (3.5-5.0); ANION GAP 15.5 MEQ/L (5-15); BILIRUBIN,TOTAL 0.9 mg/dL (0.2-1.3); Calcium 9.5 mg/dL (8.4-10.2); Creatinine 1 1.39 mg/dL (0.66-1.25); EST GLOMERULAR FILTRATION RATE 53.8 ML/MIN; Potassium 4.2 mmol/L (3.5-5.1); Total Protein 7.8 g/dL (6.3-8.2)
--- NOTE | 2022-09-24 14:57 | XRAY ---
Indication: Short of breath and fever. UTI. Comparison: March 02, 2022 Portable chest demonstrates new subtle right base infiltrate versus atelectasis with tiny effusion. Left lung clear. Heart not enlarged with enlarging large hiatal hernia. Bony thorax intact again with osteopenia and mild degenerative changes.
--- NOTE | 2022-09-24 14:57 | ERPHSYRPT ---
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, EMS Exam Limitations: other (Poor historian) Patient Subjective Stated Complaint: Patient stated " I have a feeling that I have to pee all the time and I thought my urine was blue in color and then did change urine bag and tubing and did notice it was the tubing that was blue not urine." Triage Nursing Assessment: Patient arrived to ED via EMS on stretcher and taken to room 5. Patient with HX of frequent UTI'S Patient noted with Supra-pubic cath. Surrounding site of cath slightly red in color. Urine draining without difficulty into drainage bag. Urine yellow in color with small amounts of sediment noted. Physician History: 67 yo WM w chronic supra-pubic catheter presents per EMS w possible UTI and possible catheter not draining. Pt thought that his urine was blue, but the tubing was really blue. He denied fever/nausea/vomiting/diarrhea/melena/hematochezia/cough. Timing/Duration: today Activites at Onset: rest Onset Location: suprapubic Associated Symptoms: denies symptoms Prior abdominal problems: similar symptoms Sexual intercourse history: non-contributory Allergies/Adverse Reactions: No Known Drug Allergies Allergy (Verified 09/24/22 14:54) Home Medications: Amlodipine Besylate 5 mg [Norvasc 5 mg] 5 mg PO DAILY 01/09/20 [History] Apixaban [Eliquis 2.5 mg Tablet] 5 mg PO BID 01/09/20 [History] Famotidine 20 mg [Pepcid 20 MG] 20 mg PO BID 01/09/20 [History] carvediloL [Coreg] 12.5 mg PO BID 01/09/20 [History] Baclofen 10 mg [Lioresal 10 mg] 10 mg PO Q8H PRN 03/02/22 [History] Ergocalciferol (Vitamin D2) [Vitamin D2] 1 cap PO WEEKLY 03/02/22 [History] Hydrochlorothiazide 25 mg [hydroDIURIL 25 MG] 25 mg PO DAILY 03/02/22 [History] Potassium Chloride 10 meq PO DAILY 03/02/22 [History] Hx Tetanus, Diphtheria Vaccination/Date Given: Yes Hx Influenza Vaccination/Date Given: No Hx Pneumococcal Vaccination/Date Given: No Immunizations Up to Date: Yes Travel Risk - International Travel Have you traveled outside of the country in past 3 weeks: No - Coronavirus Screening Are you exhibiting any of the following symptoms?: No - Vaccine Status Have you recieved a Covid-19 vaccination: Yes Pcts: Pfizer - Vaccination Dates Date of 2cond Vaccination (if applicable): 08/16/20 - Past Medical History Pertinent Past Medical History: Yes Neurological History: Stroke ENT History: No Pertinent History Cardiac History: No Pertinent History Respiratory History: No Pertinent History Endocrine Medical History: No Pertinent History Musculoskeletal History: No Pertinent History GI Medical History: No Pertinent History History: No Pertinent History Psycho-Social History: No Pertinent History Male Reproductive Disorders: No Pertinent History Other Medical History: hx of bph. pt has suprapubic cath in place. 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 - Past Surgical History Past Surgical History: Yes Neuro Surgical History: No Pertinent History Cardiac: No Pertinent History Respiratory: No Pertinent History Gastrointestinal: No Pertinent History Genitourinary: No Pertinent History Musculoskeletal: No Pertinent History Male Surgical History: No Pertinent History Other Surgical History: suprapubic cath placement - Social History Smoking Status: Never smoker Exposure to second hand smoke: No Drug Use: none Patient Lives Alone: No - Review of Systems Constitutional: No Symptoms Eyes: No Symptoms Ears, Nose, & Throat: No Symptoms Respiratory: No Symptoms Cardiac: No Symptoms Abdominal/Gastrointestinal: No Symptoms Musculoskeletal: No Symptoms Skin: No Symptoms Neurological: No Symptoms Psychological: No Symptoms Endocrine: No Symptoms Hematologic/Lymphatic: No Symptoms Immunological/Allergic: No Symptoms - Nursing Vital Signs Nursing Vital Signs: Initial Vital Signs Pulse Rate 118 H 09/24/22 13:11 Respiratory Rate 29 H 09/24/22 13:11 Blood Pressure 141/80 09/24/22 13:11 O2 Sat by Pulse Oximetry 96 09/24/22 13:11 Pain Scale Pain Intensity 0 Tachy/Hypertensive - Physical Exam General Appearance: no apparent distress Eye Exam: PERRL/EOMI, eyes nml inspection Ears, Nose, Throat Exam: normal ENT inspection, TMs normal, pharynx normal, moist mucous membranes Neck Exam: normal inspection, non-tender, supple, full range of motion, No meningismus, No mass, No Brudzinski, No Kernig's Respiratory Exam: airway intact, crackles/rales (B bases), No respiratory d istress Cardiovascular Exam: tachycardia, No murmur Gastrointestinal/Abdomen Exam: soft, normal bowel sounds (Supra-pubic catherter in place and draining) Extremity Exam: normal inspection, normal range of motion Neurologic Exam: alert, oriented x 3, cooperative Skin Exam: normal color, warm, dry Lymphatic Exam: No adenopathy SpO2 Interpretation: normal SpO2: 97 O2 Delivery: Room Air - Course Nursing assessment & vital signs reviewed: Yes - Radiology Exams Chest X-ray Interpretation: Reviewed by me, Discussed w/ radiologist (R base infiltrate vs atelectasis w tiny effusion) - CT Exams Abdomen/Pelvis CT Interpretation: Discussed w/radiologist (CT ab-pelvis wo-enlarging hiatal hernia w intrathoracic stomach/Moderate LIH w loop of colon/pelaez catheter in situ) Ordered Tests: Active Orders 24 hr Category Date Time Status Bedrest ROUTINE Activity 09/24/22 17:45 Active Code Status Order ROUTINE Care 09/24/22 17:44 Active IV Care Q6H Care 09/24/22 17:[address] in Observation ROUTINE Care 09/24/22 17:44 Active Vital Signs Q4H Care 09/24/22 17:44 Active Heart-Healthy Diet Diet 09/25/22 Breakfast Active ABDOMEN AND PELVIS W/0 CONTRAS [CT] Stat Exams 09/24/22 15:12 Completed CHEST 1 VIEW (PORTABLE) Stat Exams 09/24/22 14:45 Completed BLOOD CULTURE Stat Lab 09/24/22 17:50 Received CBC W DIFF AM.LAB Lab 09/25/22 04:00 Ordered CBC W DIFF Stat Lab 09/24/22 13:35 Completed CMP AM.LAB Lab 09/25/22 04:00 Ordered CMP Stat Lab 09/24/22 13:35 Completed CULTURE,URINE Stat Lab 09/24/22 14:16 Received Lactic Acid AM.LAB Lab 09/25/22 04:00 Ordered Lactic Acid Stat Lab 09/24/22 13:35 Completed TROPONIN Q4H Lab 09/24/22 13:30 Completed TROPONIN Q4H Lab 09/24/22 17:45 Received TROPONIN Q4H Lab 09/24/22 22:45 Ordered UA W/RFX UR CULTURE Stat Lab 09/24/22 14:16 Completed Transfer Order Routine Transfer 09/24/22 Ordered Medication Summary Generic Name Dose Route Start Last Admin Trade Name Freq PRN Reason Stop Dose Admin Sodium Chloride 1,000 mls @ 100 mls/hr 09/24/22 17:45 09/24/22 17:49 Sodium Chloride 0.9% 1000 Ml IV 10/24/22 17:44 100 mls/hr .Q10H OFELIA Administration Ceftriaxone Sodium/Dextrose 1 g in 50 mls @ 100 mls/hr 09/25/22 10:00 Rocephin 1 Gm-D5w 50 Ml Bag IV 09/28/22 09:59 Q24H10 OFELIA Ondansetron HCl 4 mg 09/24/22 17:46 Ondansetron Hcl 4 Mg/2 Ml Vial IV 10/24/22 17:45 Q6H PRN PRN NAUSEA/VOMITING Discontinued Medications Generic Name Dose Route Start Last Admin Trade Name Freq PRN Reason Stop Dose Admin Ceftriaxone Sodium/Dextrose 1 g in 50 mls @ 100 mls/hr 09/24/22 17:30 09/24/22 17:48 Rocephin 1 Gm-D5w 50 Ml Bag IV 09/24/22 17:59 100 mls/hr STAT STA 100 mls/hr Administration Ceftriaxone Sodium/Dextrose Confirm 09/24/22 17:47 Rocephin 1 Gm-D5w 50 Ml Bag Administered 09/24/22 17:48 Dose 1 g in 50 mls @ ud IV .[facility] Lab/Rad Data: Laboratory Result Diagrams 09/24/22 13:35 09/24/22 13:35 Laboratory Results 09/24/22 09/24/22 09/24/22 Range/Units 14:16 13:35 13:35 WBC (4.0-10.5) x10^3/uL RBC (4.1-5.6) x10^6/uL Hgb (12.5-18.0) g/dL Hct (42-50) % MCV (78-100) fL MCH (26-32) pg MCHC (32-36) g/dL RDW (11.5-14.0) % Plt Count (150-450) x10^3/uL MPV (7.5-11.0) fL Gran % (36.0-66.0) % Immature Gran % (Auto) (0.00-0.4) % Nucleat RBC Rel Count (0.00-0.1) % Eos # (Auto) (0-0.5) x10^3/uL Immature Gran # (Auto) (0.00-0.03) x10^3u/L Absolute Lymphs (auto) (1.0-4.6) x10^3/uL Absolute Monos (auto) (0.0-1.3) x10^3/uL Absolute Nucleated RBC (0.00-0.01) x10^3u/L Lymphocytes % (24.0-44.0) % Monocytes % (0.0-12.0) % Eosinophils % (0.00-5.0) % Basophils % (0.0-0.4) % Absolute Granulocytes (1.4-6.9) x10^3/uL Basophils # (0-0.4) x10^3/uL Sodium 137 (137-145) mmol/L Potassium 4.2 (3.5-5.1) mmol/L Chloride 97 L (98-107) mmol/L Carbon Dioxide 28 (22-30) mmol/L Anion Gap 15.5 H (5-15) MEQ/L BUN 20 (9-20) mg/dL Creatinine 1.39 H (0.66-1.25) mg/dL Estimated GFR 53.8 ML/MIN Glucose 119 H (74-106) mg/dL Lactic Acid 1.4 (0.4-2.0) Calcium 9.5 (8.4-10.2) mg/dL Total Bilirubin 0.90 (0.2-1.3) mg/dL AST 27 (17-59) U/L ALT 21 (0-50) U/L Alkaline Phosphatase 73 (38-126) U/L Troponin I (0.000-0.034) ng/mL Serum Total Protein 7.8 (6.3-8.2) g/dL Albumin 4.3 (3.5-5.0) g/dL Urine Color Yellow (Yellow) Urine Appearance Turbid A (Clear) Urine pH 8.0 (4.6-8.0) Ur Specific Hamer 1.020 (1.005-1.030) Urine Protein 100 A (Negative) Urine Glucose (UA) Negative (Negative) mg/dL Urine Ketones Trace A (Negative) Urine Blood Large A (Negative) Urine Nitrite Negative (Negative) Urine Bilirubin Negative (Negative) Urine Urobilinogen 1.0 A (0.2) mg/dL Ur Leukocyte Esterase Large A (Negative) U Hyaline Cast (Auto) None Seen (0-2) /LPF Urine Microscopic RBC 6-10 A (0-5) /HPF Urine Microscopic WBC 21-50 A (0-5) /HPF Ur Epithelial Cells Few (None Seen) /HPF Urine Bacteria Many A (None Seen) /HPF Urine Culture Reflexed ORDERED SEPARATELY (NO) 09/24/22 09/24/22 Range/Units 13:35 13:30 WBC 11.4 H (4.0-10.5) x10^3/uL RBC 5.05 (4.1-5.6) x10^6/uL Hgb 15.3 (12.5-18.0) g/dL Hct 46.2 (42-50) % MCV 91.5 (78-100) fL MCH 30.3 (26-32) pg MCHC 33.1 (32-36) g/dL RDW 13.4 (11.5-14.0) % Plt Count 218 (150-450) x10^3/uL MPV 9.7 (7.5-11.0) fL Gran % 75.9 H (36.0-66.0) % Immature Gran % (Auto) 0.4 (0.00-0.4) % Nucleat RBC Rel Count 0.0 (0.00-0.1) % Eos # (Auto) 0.26 (0-0.5) x10^3/uL Immature Gran # (Auto) 0.04 H (0.00-0.03) x10^3u/L Absolute Lymphs (auto) 1.57 (1.0-4.6) x10^3/uL Absolute Monos (auto) 0.74 (0.0-1.3) x10^3/uL Absolute Nucleated RBC 0.00 (0.00-0.01) x10^3u/L Lymphocytes % 13.8 L (24.0-44.0) % Monocytes % 6.5 (0.0-12.0) % Eosinophils % 2.3 (0.00-5.0) % Basophils % 1.1 (0.0-0.4) % Absolute Granulocytes 8.65 H (1.4-6.9) x10^3/uL Basophils # 0.12 (0-0.4) x10^3/uL Sodium (137-145) mmol/L Potassium (3.5-5.1) mmol/L Chloride (98-107) mmol/L Carbon Dioxide (22-30) mmol/L Anion Gap (5-15) MEQ/L BUN (9-20) mg/dL Creatinine (0.66-1.25) mg/dL Estimated GFR ML/MIN Glucose (74-106) mg/dL Lactic Acid (0.4-2.0) Calcium (8.4-10.2) mg/dL Total Bilirubin (0.2-1.3) mg/dL AST (17-59) U/L ALT (0-50) U/L Alkaline Phosphatase (38-126) U/L Troponin I < 0.012 (0.000-0.034) ng/mL Serum Total Protein (6.3-8.2) g/dL Albumin (3.5-5.0) g/dL Urine Color (Yellow) Urine Appearance (Clear) Urine pH (4.6-8.0) Ur Specific Hamer (1.005-1.030) Urine Protein (Negative) Urine Glucose (UA) (Negative) mg/dL Urine Ketones (Negative) Urine Blood (Negative) Urine Nitrite (Negative) Urine Bilirubin (Negative) Urine Urobilinogen (0.2) mg/dL Ur Leukocyte Esterase (Negative) U Hyaline Cast (Auto) (0-2) /LPF Urine Microscopic RBC (0-5) /HPF Urine Microscopic WBC (0-5) /HPF Ur Epithelial Cells (None Seen) /HPF Urine Bacteria (None Seen) /HPF Urine Culture Reflexed (NO) - Progress Progress: improved Progress Note: 09/24/22 17:[address] Carter 09/24/22 18:28 Nursing note and vital signs reviewed No food or housing insecurities noted All lab results reviewed and shared w pt CXR/CT results reviewed and shared w pt Supra-pubic catheter-nursing unable to flush, so replaced wo complications Blood cultures x2/1gm IV Rocephin Pt admitted due to leukocytosis and persistent tachycardia Counseled pt/family regarding: lab results, diagnosis, rad results Medical Desision Making - Independent Historian Additional History obtained from: EMS - Diagnostic Testing Diagnostic test were ordered, analyzed, and reviewed by me: Yes Radiological Interpretation: Reviewed by me, Discussed w/ radiologist - Risk of complications The pt has a high risk of morbidity or mortality based on: Drug therapy requiring intensive monitoring for toxicity - Departure Departure Disposition: Observation Clinical Impression: UTI (urinary tract infection), Encounter for replacement of urinary catheter Condition: Stable Critical Care Time: No Referrals: ROGE BYRNE MD [Primary Care Provider] - Follow up/PCP as directed
[2022-09-24 15:00] LABS: Appearance Turbid (Clear); Bacteria Many /HPF (None Seen); Bilirubin Negative (Negative); Blood Large (Negative); Glucose, Urine Negative (Negative); Ketones Trace (Negative); Leukocyte Esterase Large (Negative); Nitrite Negative (Negative); Protein,Urine Dip 100 (Negative)
[2022-09-24 15:01] LABS: ADD URINE CULTURE? ORDERED SEPARATELY (NO); Epithelial Cells Few /HPF (None Seen); Hyaline Casts None Seen /LPF (0-2); WBC 21-50 /HPF (0-5)
--- NOTE | 2022-09-24 16:35 | XRAY ---
Indication: Abdomen pain. Multiple contiguous axial images obtained through the abdomen and pelvis without contrast. Comparison: January 09, 2020 Lung bases demonstrates minimal dependent atelectasis less than before. Heart not enlarged. Enlarging large hiatal hernia with now intrathoracic stomach. Noncontrasted stomach and bowel loops nonobstructed with normal appendix. Right kidney again demonstrates chunky benign-appearing cortical calcifications. New 1.2 cm right lower pole exophytic cyst. New nonobstructing left renal punctate calculus. Urinary bladder mildly distended again with Robles balloon catheter in situ and intraluminal air bubbles. Stable enlarged prostate gland impressing on the base of the bladder. Remaining liver, gallbladder, pancreas, spleen, adrenal glands, kidneys, ureters, and bladder are unremarkable for noncontrast exam. Again moderate scattered aortoiliac calcifications without AAA. Osseous structures intact again with osteopenia and mild degenerative changes throughout the spine. New moderate-sized left inguinal hernia with herniated loop of colon without complications. Impression: 1. Enlarging large hiatal hernia with new intrathoracic stomach. 2. New moderate left inguinal hernia with herniated loop of colon without complications. 3. New nonobstructing left renal punctate calculus and small right renal cyst. 4. Again chronic findings including enlarged prostate gland, Robles catheter in situ, arteriosclerotic disease, and chronic bony findings.
[2022-09-24] MEDS ORDERED: ROCEPHIN 1 Gm-D5w 50 ml Bag** 1 G/50 ML IVPB IV STA (17:30)
[2022-09-24] MEDS ORDERED: Zofran 4 MG/2 ML VIAL IV PRN (17:46)
[2022-09-24] MEDS ORDERED: ROCEPHIN 1 Gm-D5w 50 ml Bag** 1 G/50 ML IVPB IV ONE (17:47)
[2022-09-24] MEDS: Sodium Chloride 0.9% 1000 ML 1,000 ML IV SCH (17:49)
[2022-09-25] MEDS: Sodium Chloride 0.9% 1000 ML 1,000 ML IV SCH (04:32)
[2022-09-25 05:05] LABS: BASOPHIL % 0.8 % (0.0-0.4); Basophil (Absolute #) 0.07 x10^3/uL (0-0.4); Eosinophil % 1.9 % (0.00-5.0); Eosinophil (Absolute #) 0.17 x10^3/uL (0-0.5); Hematocrit 43.1 % (42-50); Hemoglobin 14.3 g/dL (12.5-18.0); IMMATURE GRAN # 0.03 x10^3u/L (0.00-0.03); IMMATURE GRAN % 0.3 % (0.00-0.4); Lymphocyte (Absolute #) 1.32 x10^3/uL (1.0-4.6); Lymphocytes % 14.4 % (24.0-44.0); Mean Cell Volume 90.5 fL (78-100); Mean Corpuscular Hgb Concent. 33.2 g/dL (32-36); Mean Platelet Volume 10.4 fL (7.5-11.0); Monocyte (Absolute #) 0.88 x10^3/uL (0.0-1.3); Monocytes % 9.6 % (0.0-12.0); Platelet Count 181 x10^3/uL (150-450); Red Blood Count 4.76 x10^6/uL (4.1-5.6); Red Cell Distribution Width 13.6 % (11.5-14.0); White Blood Count 9.2 x10^3/uL (4.0-10.5)
[2022-09-25 05:29] LABS: ALBUMIN 3.4 g/dL (3.5-5.0); ALKALINE PHOSPHATASE 61 U/L (38-126); ANION GAP 11.4 MEQ/L (5-15); BLOOD UREA NITROGEN 20 mg/dL (9-20); CHLORIDE 101 mmol/L (98-107); Calcium 8.7 mg/dL (8.4-10.2); Carbon Dioxide 28 mmol/L (22-30); Creatinine 1 1.24 mg/dL (0.66-1.25); EST GLOMERULAR FILTRATION RATE > 60.0 ML/MIN; Glucose 95 mg/dL (74-106); Potassium 3.6 mmol/L (3.5-5.1); SGOT/AST 27 U/L (17-59); SGPT/ALT 18 U/L (0-50); SODIUM 137 mmol/L (137-145); Total Protein 6.4 g/dL (6.3-8.2)
[2022-09-25] MEDS: LIORESAL 10 MG PO PRN ×2 (06:41→16:11)
[2022-09-25] MEDS ORDERED: ROCEPHIN 1 Gm-D5w 50 ml Bag** 1 G/50 ML IVPB IV SCH (10:00)
[2022-09-25] MEDS ORDERED: ELIQUIS 2.5 MG TABLET PO SCH (10:00)
[2022-09-25] MEDS ORDERED: Pepcid 20 MG PO SCH (10:00)
[2022-09-25] MEDS ORDERED: NORVASC 5 MG PO SCH (10:00)
[2022-09-25] MEDS ORDERED: Klor Con PO SCH (10:00)
[2022-09-25] MEDS ORDERED: hydroDIURIL 25 MG PO SCH (10:00)
[2022-09-25] MEDS ORDERED: COREG 12.5 MG PO SCH (10:00)
[2022-09-25 11:42] VITALS: PULSE 84
[2022-09-25 16:19] VITALS: BP 150/85; O2SAT 92
--- NOTE | 2022-09-25 17:09 | PCM.SSS ---
History of Present Illness - Chief Complaint Chief Complaint: UTI History of Present Illness: Mr.MARX MARSHALL is a 67 year old male. Medications & Allergies Home Medications: Home Medication List Amlodipine Besylate 5 mg [Norvasc 5 mg] 5 mg PO DAILY 01/09/20 [History Confirmed 09/24/22] Apixaban [Eliquis 2.5 mg Tablet] 5 mg PO BID 01/09/20 [History Confirmed 09/24/22] Famotidine 20 mg [Pepcid 20 MG] 20 mg PO BID 01/09/20 [History Confirmed 09/24/22] carvediloL [Coreg] 12.5 mg PO BID 01/09/20 [History Confirmed 09/24/22] Baclofen 10 mg [Lioresal 10 mg] 10 mg PO Q8H PRN 03/02/22 [History Confirmed 09/24/22] Hydrochlorothiazide 25 mg [hydroDIURIL 25 MG] 25 mg PO DAILY 03/02/22 [History Confirmed 09/24/22] Potassium Chloride 10 meq PO DAILY 03/02/22 [History Confirmed 09/24/22] Allergies/Adverse Reactions: Allergies Allergy/AdvReac Type Severity Reaction Status Date / Time No Known Drug Allergies Allergy Verified 09/24/22 18:44 - Past Medical History Past Medical History: Yes Neurological History: Stroke ENT History: No Pertinent History Cardiac History: No Pertinent History Respiratory History: No Pertinent History Endocrine Medical History: No Pertinent History Musculoskelatal History: No Pertinent History GI Medical History: No Pertinent History History: No Pertinent History Pyscho-Social History: No Pertinent History Male Reproductive Disorders: No Pertinent History Comment: hx of bph. pt has suprapubic cath in place. 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 - Past Surgical History Past Surgical History: Yes Neuro Surgical History: No Pertinent History Cardiac History: No Pertinent History Respiratory Surgery: No Pertinent History GI Surgical History: No Pertinent History Genitourinary Surgical Hx: No Pertinent History Musculskeletal Surgical Hx: No Pertinent History Male Surgical History: No Pertinent History Other Surgical History: suprapubic cath placement - Social History Smoking Status: Never smoker Exposure to second hand smoke: No Alcohol: None Drug Use: none - Physical Exam Vital Signs: Vital Signs - 24 hr Temp Pulse Resp BP BP Pulse Ox 09/25/22 16:00 98.7 F 84 17 150/85 92 L 09/25/22 11:38 98.9 F 84 17 128/63 93 L 09/25/22 07:01 98.6 F 77 18 130/74 96 09/25/22 04:00 97.9 F 81 17 141/73 95 09/24/22 23:00 96.7 F 82 17 132/68 95 09/24/22 19:27 97.7 F 94 H 16 122/80 95 09/24/22 18:31 97 09/24/22 17:10 98.3 F 106 H 15 120/69 94 L Results - Labs Lab/Micro Results: Lab Results-Last 24 Hours 09/24/22 09/24/22 09/25/22 Range/Units 17:45 22:45 04:36 WBC 9.2 (4.0-10.5) x10^3/uL RBC 4.76 (4.1-5.6) x10^6/uL Hgb 14.3 (12.5-18.0) g/dL Hct 43.1 (42-50) % MCV 90.5 (78-100) fL MCH 30.0 (26-32) pg MCHC 33.2 (32-36) g/dL RDW 13.6 (11.5-14.0) % Plt Count 181 (150-450) x10^3/uL MPV 10.4 (7.5-11.0) fL Gran % 73.0 H (36.0-66.0) % Immature Gran % (Auto) 0.3 (0.00-0.4) % Nucleat RBC Rel Count 0.0 (0.00-0.1) % Eos # (Auto) 0.17 (0-0.5) x10^3/uL Immature Gran # (Auto) 0.03 (0.00-0.03) x10^3u/L Absolute Lymphs (auto) 1.32 (1.0-4.6) x10^3/uL Absolute Monos (auto) 0.88 (0.0-1.3) x10^3/uL Absolute Nucleated RBC 0.00 (0.00-0.01) x10^3u/L Lymphocytes % 14.4 L (24.0-44.0) % Monocytes % 9.6 (0.0-12.0) % Eosinophils % 1.9 (0.00-5.0) % Basophils % 0.8 (0.0-0.4) % Absolute Granulocytes 6.70 (1.4-6.9) x10^3/uL Basophils # 0.07 (0-0.4) x10^3/uL Sodium (137-145) mmol/L Potassium (3.5-5.1) mmol/L Chloride (98-107) mmol/L Carbon Dioxide (22-30) mmol/L Anion Gap (5-15) MEQ/L BUN (9-20) mg/dL Creatinine (0.66-1.25) mg/dL Estimated GFR ML/MIN Glucose (74-106) mg/dL Calcium (8.4-10.2) mg/dL Total Bilirubin (0.2-1.3) mg/dL AST (17-59) U/L ALT (0-50) U/L Alkaline Phosphatase (38-126) U/L Troponin I < 0.012 < 0.012 (0.000-0.034) ng/mL Serum Total Protein (6.3-8.2) g/dL Albumin (3.5-5.0) g/dL 09/25/22 Range/Units 04:36 WBC (4.0-10.5) x10^3/uL RBC (4.1-5.6) x10^6/uL Hgb (12.5-18.0) g/dL Hct (42-50) % MCV (78-100) fL MCH (26-32) pg MCHC (32-36) g/dL RDW (11.5-14.0) % Plt Count (150-450) x10^3/uL MPV (7.5-11.0) fL Gran % (36.0-66.0) % Immature Gran % (Auto) (0.00-0.4) % Nucleat RBC Rel Count (0.00-0.1) % Eos # (Auto) (0-0.5) x10^3/uL Immature Gran # (Auto) (0.00-0.03) x10^3u/L Absolute Lymphs (auto) (1.0-4.6) x10^3/uL Absolute Monos (auto) (0.0-1.3) x10^3/uL Absolute Nucleated RBC (0.00-0.01) x10^3u/L Lymphocytes % (24.0-44.0) % Monocytes % (0.0-12.0) % Eosinophils % (0.00-5.0) % Basophils % (0.0-0.4) % Absolute Granulocytes (1.4-6.9) x10^3/uL Basophils # (0-0.4) x10^3/uL Sodium 137 (137-145) mmol/L Potassium 3.6 (3.5-5.1) mmol/L Chloride 101 (98-107) mmol/L Carbon Dioxide 28 (22-30) mmol/L Anion Gap 11.4 (5-15) MEQ/L BUN 20 (9-20) mg/dL Creatinine 1.24 (0.66-1.25) mg/dL Estimated GFR > 60.0 ML/MIN Glucose 95 (74-106) mg/dL Calcium 8.7 (8.4-10.2) mg/dL Total Bilirubin 0.90 (0.2-1.3) mg/dL AST 27 (17-59) U/L ALT 18 (0-50) U/L Alkaline Phosphatase 61 (38-126) U/L Troponin I (0.000-0.034) ng/mL Serum Total Protein 6.4 (6.3-8.2) g/dL Albumin 3.4 L (3.5-5.0) g/dL Microbiology 09/24/22 14:16 Urine Culture - Preliminary Urine,Suprapubic GRAM NEGATIVE ID AND SENSITIVITY PENDING - Radiology Impressions Radiology Exams & Impressions: Radiology Procedures Category Date Time Status ABDOMEN AND PELVIS W/0 CONTRAS [CT] Stat Exams 09/24/22 15:12 Completed CHEST 1 VIEW (PORTABLE) Stat Exams 09/24/22 14:45 Completed Assessment/Plan (1) Suprapubic catheter dysfunction Current Visit: No Status: Resolved Code(s): T83.010A - BREAKDOWN (MECHANICAL) OF CYSTOSTOMY CATHETER, INIT ENCNTR (2) UTI (urinary tract infection) Current Visit: Yes Status: Acute Assessment & Plan: culture pending. Patient has Rx Keflex waiting for him at Pharmacy sent by his PCP Dr Hernandez.Start this while awaitng results of culture. Code(s): N39.0 - URINARY TRACT INFECTION, SITE NOT SPECIFIED (3) Spasticity as late effect of cerebrovascular accident (CVA) Current Visit: No Status: Chronic Assessment & Plan: right side Code(s): I69.398 - OTHER SEQUELAE OF CEREBRAL INFARCTION; R25.2 - CRAMP AND SPASM Hospital Summary - Vitals & Intake/Output Vital Signs: Vital Signs Temperature 98.7 F 09/25/22 16:00 Pulse Rate 84 09/25/22 16:00 Respiratory Rate 17 09/25/22 16:00 Blood Pressure 150/85 09/25/22 16:00 O2 Sat by Pulse Oximetry 92 L 09/25/22 16:00 Intake & Output: Intake & Output 09/23/22 09/24/22 09/25/22 09/26/22 11:59 11:59 11:59 11:59 Intake Total 1378 240 Output Total 800 1200 Balance 578 -960 Weight 88.2 kg - Lab Result Diagrams: 09/25/22 04:36 09/25/22 04:36 Lab Results-Last 24 Hrs: Lab Results-Last 24 Hours 09/24/22 09/24/22 09/25/22 Range/Units 17:45 22:45 04:36 WBC 9.2 (4.0-10.5) x10^3/uL RBC 4.76 (4.1-5.6) x10^6/uL Hgb 14.3 (12.5-18.0) g/dL Hct 43.1 (42-50) % MCV 90.5 (78-100) fL MCH 30.0 (26-32) pg MCHC 33.2 (32-36) g/dL RDW 13.6 (11.5-14.0) % Plt Count 181 (150-450) x10^3/uL MPV 10.4 (7.5-11.0) fL Gran % 73.0 H (36.0-66.0) % Immature Gran % (Auto) 0.3 (0.00-0.4) % Nucleat RBC Rel Count 0.0 (0.00-0.1) % Eos # (Auto) 0.17 (0-0.5) x10^3/uL Immature Gran # (Auto) 0.03 (0.00-0.03) x10^3u/L Absolute Lymphs (auto) 1.32 (1.0-4.6) x10^3/uL Absolute Monos (auto) 0.88 (0.0-1.3) x10^3/uL Absolute Nucleated RBC 0.00 (0.00-0.01) x10^3u/L Lymphocytes % 14.4 L (24.0-44.0) % Monocytes % 9.6 (0.0-12.0) % Eosinophils % 1.9 (0.00-5.0) % Basophils % 0.8 (0.0-0.4) % Absolute Granulocytes 6.70 (1.4-6.9) x10^3/uL Basophils # 0.07 (0-0.4) x10^3/uL Sodium (137-145) mmol/L Potassium (3.5-5.1) mmol/L Chloride (98-107) mmol/L Carbon Dioxide (22-30) mmol/L Anion Gap (5-15) MEQ/L BUN (9-20) mg/dL Creatinine (0.66-1.25) mg/dL Estimated GFR ML/MIN Glucose (74-106) mg/dL Calcium (8.4-10.2) mg/dL Total Bilirubin (0.2-1.3) mg/dL AST (17-59) U/L ALT (0-50) U/L Alkaline Phosphatase (38-126) U/L Troponin I < 0.012 < 0.012 (0.000-0.034) ng/mL Serum Total Protein (6.3-8.2) g/dL Albumin (3.5-5.0) g/dL 09/25/22 Range/Units 04:36 WBC (4.0-10.5) x10^3/uL RBC (4.1-5.6) x10^6/uL Hgb (12.5-18.0) g/dL Hct (42-50) % MCV (78-100) fL MCH (26-32) pg MCHC (32-36) g/dL RDW (11.5-14.0) % Plt Count (150-450) x10^3/uL MPV (7.5-11.0) fL Gran % (36.0-66.0) % Immature Gran % (Auto) (0.00-0.4) % Nucleat RBC Rel Count (0.00-0.1) % Eos # (Auto) (0-0.5) x10^3/uL Immature Gran # (Auto) (0.00-0.03) x10^3u/L Absolute Lymphs (auto) (1.0-4.6) x10^3/uL Absolute Monos (auto) (0.0-1.3) x10^3/uL Absolute Nucleated RBC (0.00-0.01) x10^3u/L Lymphocytes % (24.0-44.0) % Monocytes % (0.0-12.0) % Eosinophils % (0.00-5.0) % Basophils % (0.0-0.4) % Absolute Granulocytes (1.4-6.9) x10^3/uL Basophils # (0-0.4) x10^3/uL Sodium 137 (137-145) mmol/L Potassium 3.6 (3.5-5.1) mmol/L Chloride 101 (98-107) mmol/L Carbon Dioxide 28 (22-30) mmol/L Anion Gap 11.4 (5-15) MEQ/L BUN 20 (9-20) mg/dL Creatinine 1.24 (0.66-1.25) mg/dL Estimated GFR > 60.0 ML/MIN Glucose 95 (74-106) mg/dL Calcium 8.7 (8.4-10.2) mg/dL Total Bilirubin 0.90 (0.2-1.3) mg/dL AST 27 (17-59) U/L ALT 18 (0-50) U/L Alkaline Phosphatase 61 (38-126) U/L Troponin I (0.000-0.034) ng/mL Serum Total Protein 6.4 (6.3-8.2) g/dL Albumin 3.4 L (3.5-5.0) g/dL Micro Results-Entire Visit: Microbiology 09/24/22 14:16 Urine Culture - Preliminary Urine,Suprapubic GRAM NEGATIVE ID AND SENSITIVITY PENDING - Radiology Exams Ordered Rad Exams-Entire Visit: Radiology Procedures Category Date Time Status ABDOMEN AND PELVIS W/0 CONTRAS [CT] Stat Exams 09/24/22 15:12 Completed CHEST 1 VIEW (PORTABLE) Stat Exams 09/24/22 14:45 Completed - Discharge Disposition: Home, Self-Care Condition: Stable Prescriptions: No Action Famotidine 20 mg [Pepcid 20 MG] 20 mg PO BID Apixaban [Eliquis 2.5 mg Tablet] 5 mg PO BID carvediloL [Coreg] 12.5 mg PO BID Amlodipine Besylate 5 mg [Norvasc 5 mg] 5 mg PO DAILY Hydrochlorothiazide 25 mg [hydroDIURIL 25 MG] 25 mg PO DAILY Potassium Chloride 10 meq PO DAILY Baclofen 10 mg [Lioresal 10 mg] 10 mg PO Q8H PRN PRN Reason: muscle relax Follow up with: ROGE BYRNE MD [Primary Care Provider] -
--- NOTE | 2022-09-25 17:12 | PCM.DCORD ---
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
== END 2022-09-25 18:35 | disposition home health service (06) ==
LOC: ED 13:11 → MED SURG 18:27
PROVIDERS: ADMIT Family Medicine; ATTEND Family Medicine
DX: T83.010A Breakdown (mechanical) of cystostomy catheter, initial encounter (principal); N39.0 Urinary tract infection, site not specified; I69.359 Hemiplegia and hemiparesis following cerebral infarction affecting unspecified side; R25.2 Cramp and spasm; Z79.899 Other long term (current) drug therapy; Z20.828 Contact with and (suspected) exposure to other viral communicable diseases; Z79.01 Long term (current) use of anticoagulants
CPT/HCPCS: 36000; 36415; 71045; 74176; 80053; 81001; 83605; 84484; 85025; 87040; 87086; 96365; 99285; G0378; J0696; A9270-GY